=== PATIENT | male | born 1955 | race Caucasian/White ===

== ENCOUNTER 2025-05-23 09:51 | Inpatient (IN) ==
--- NOTE | 2025-05-23 10:55 | Emergency Department Note ---
History of Present Illness General Chief complaint: Hip Pain Stated complaint: HIP PAIN, Time Seen by Provider: 05/23/25 10:27 History of Present Illness Maximum Pain Intensity: 6 This is a 69-year-old male that presents to the emergency department via EMS for evaluation of left lower extremity pain. Patient with recent trauma on May 13 when he fell from a height sustaining injury to his left tibia. Patient states that he was seen at [facility] (as an outpatient - not ED) and had x-rays performed of the left knee area and ultimately CT scan of the left knee which showed tibial plateau fracture. He tried following locally but was referred to ortho surgeon at [facility] and [place] [facility]. Patient underwent left tibial plateau fracture repair this past May 19. The patient notes that he was doing well postoperatively and has been managing pain with Vicodin as well as acetaminophen (denies exceeding daily max of acetaminophen). Patient is anticoagulated on oral Eliquis which was resumed as of recent. The patient does note that during the fall he struck his head and has other areas of pain. He denies any imaging of those areas, only the left leg thus far. He presents today noting severe, worsening left lower extremity pain with associated coolness and purple/blue hue to the toes and foot on the left. He notes much of the pain is the left hip and to a lesser extent the left knee area. He notes mainly the area of pain is the left hip. On arrival here he notes that the left leg pain has greatly improved and the color and temperature have improved in the left leg as well. Patient states that he called his orthopedic surgeon group today and was recommended to present to the closest emergency department to be evaluated for possible compartment syndrome therefore presenting here via EMS. Home Medications Medication Instructions Recorded Confirmed Type Z5-R-ibizy-soy 1 cap PO DAILY 10/14/22 05/23/25 History mrzns-asvymzavxc-poxcbfcp 1,200 unit-15 unit-35 mcg cap (Prostate 2.4) aspirin 81 mg tablet,delayed 81 mg PO Q OTHER DAY 10/14/22 05/23/25 History release fioqhjpd-jwt-ajayd1 250 mg-dha 90 1 cap PO 3XWK 10/14/22 05/23/25 History mg-epa 160 by-fqzj-wcqg-zeax capsule (Ocuvite Adult 50 Plus) pantoprazole 20 mg tablet,delayed 20 mg PO DAILY 10/14/22 05/23/25 History release sulfasalazine 500 mg tablet 1,000 g PO DAILY 10/14/22 05/23/25 History apixaban 5 mg tablet (Eliquis) 5 mg PO BID 05/12/23 05/23/25 History Pro Chappells Coq10 1 tab PO BID 05/23/25 05/23/25 History Visobiome 1 dose PO DAILY 05/23/25 05/23/25 History amlodipine 2.5 mg tablet 2.5 mg PO QAM 05/23/25 05/23/25 History ascorbic acid (vitamin C) 500 mg 1,000 mg PO DAILY 05/23/25 05/23/25 History chewable tablet calcium 600 mg (as carbonate)-vit 1 tab PO 4XWK 05/23/25 05/23/25 History D3 20 mcg (800 unit) chewable tablet (Caltrate plus D) cholecalciferol (vitamin D3) 25 25 mcg PO DAILY 05/23/25 05/23/25 History mcg (1,000 unit) tablet (Vitamin D3) cyclobenzaprine 5 mg tablet 5 mg PO HS PRN Muscle Spasm 05/23/25 05/23/25 History hydrocodone 5 mg-acetaminophen 325 1 tab PO Q6H PRN moderate pain. 05/23/25 05/23/25 History mg tablet metoprolol succinate 25 mg 12.5 mg PO DAILY 05/23/25 05/23/25 History tablet,extended release 24 hr eknefhws-du-uhhdj 300 mcg-K 60 1 tab PO 4XWK 05/23/25 05/23/25 History mcg-lycop 600 mcg-lutein 300 mcg tablet (Centrum Silver Ultra Men's) nitroglycerin 0.4 mg sublingual 0.4 mg sublingual UD PRN Chest Pain 05/23/25 05/23/25 History tablet (Nitrostat) potassium 99 mg tablet 99 mg PO DAILY 05/23/25 05/23/25 History rosuvastatin 20 mg tablet 20 mg PO DAILY 05/23/25 05/23/25 History thiamine HCl (vitamin B1) 50 mg 50 mg PO DAILY 05/23/25 05/23/25 History tablet (Vitamin B-1) vibegron 75 mg tablet (Gemtesa) 75 mg PO QAM 05/23/25 05/23/25 History zinc glycinate 30 mg capsule 30 mg PO DAILY 05/23/25 05/23/25 History Allergies Allergy/AdvReac Type Severity Reaction Status Date / Time atorvastatin [From Lipitor] Allergy Verified 10/14/24 15:33 Past Med/Surg History Problem List (Updated 05/23/25 @ 23:26 by Obed Jose PA-C) Anticoagulated on Eliquis (Acute) Ligament tear (Acute) Muscle strain of left gluteal region (Acute) Contusion of left lower extremity (Acute) Hip pain, left (Acute) History of orthopedic surgery (Acute) Tibial plateau fracture, left (Acute) Groin pain Sleep apnea BPH with obstruction/lower urinary tract symptoms Asthma Inguinal hernia Testicular discomfort Bronchitis Arthritis Gout Elevated PSA Surgical History (Updated 05/23/25 @ 18:40 by Obed Jose PA-C) No pertinent past surgical history Family History (Updated 03/23/21 @ 14:01 by Tho Rabago) Father Cancer Mother Heart disease Social History Smoking Status: Never smoker Hx Alcohol Use: Yes Preferred Language: Bruneian marital status: Single current occupational status: employed Feels Safe at Home: Yes Review of Systems A total of 10 systems reviewed and were otherwise negative Physical Exam Vital Signs Vital Signs - 24 hr 05/23/25 09:57 05/23/25 11:28 05/23/25 11:51 Temperature 36.7 C Temperature Source Temporal Artery Scan Pulse Rate 109 H 96 H Pulse Rate [Apical] 93 H Respiratory Rate 18 17 19 Respiratory Effort / Characteristics Non-Labored Spontaneous Non-Labored Spontaneous Respiratory Depth Normal Normal Respiratory Pattern Blood Pressure 139/84 Blood Pressure [Right Arm] 137/112 H Blood Pressure Mean 102 Blood Pressure Mean [Right Arm] 120 Blood Pressure Position [Right Arm] Pulse Oximetry 98 94 98 Oxygen Delivery Method Room Air Room Air Room Air Sepsis Recent Fever Within 48 Hours No Sepsis New/Unexplained Change in Mental Status No Sepsis Action Taken by Nursing No Action Required 05/23/25 12:34 05/23/25 13:00 05/23/25 17:45 Temperature Temperature Source Pulse Rate 92 H Pulse Rate [Apical] 94 H 103 H Respiratory Rate 17 18 Respiratory Effort / Characteristics Non-Labored Spontaneous Non-Labored Spontaneous Respiratory Depth Normal Normal Respiratory Pattern Blood Pressure Blood Pressure [Right Arm] 140/96 134/88 Blood Pressure Mean Blood Pressure Mean [Right Arm] 110 103 Blood Pressure Position [Right Arm] Semi-fowlers Pulse Oximetry 97 96 Oxygen Delivery Method Room Air Room Air Sepsis Recent Fever Within 48 Hours Sepsis New/Unexplained Change in Mental Status Sepsis Action Taken by Nursing 05/23/25 19:20 05/23/25 20:16 05/23/25 20:56 Temperature 37.1 C Temperature Source Oral Pulse Rate Pulse Rate [Apical] 103 H 99 H 104 H Respiratory Rate 18 16 16 Respiratory Effort / Characteristics Non-Labored Spontaneous Non-Labored Spontaneous Non-Labored Spontaneous Respiratory Depth Normal Normal Normal Respiratory Pattern Regular Regular Regular Blood Pressure Blood Pressure [Right Arm] 112/81 131/82 Blood Pressure Mean Blood Pressure Mean [Right Arm] 91 98 Blood Pressure Position [Right Arm] Semi-fowlers Lying Pulse Oximetry 96 96 94 Oxygen Delivery Method Room Air Room Air Room Air Sepsis Recent Fever Within 48 Hours Sepsis New/Unexplained Change in Mental Status Sepsis Action Taken by Nursing VITAL SIGNS - Vital signs and nursing notes were reviewed. Stable and afebrile. Primary Survey Airway: Intact Breathing: Breath sounds equal bilaterally. No respiratory distress Circulation: Skin warm, capillary refill less than 2 seconds Disability: Pupils equal and reactive to light Motor Function: Moves all extremities. Sensory: No deficits Secondary Survey GENERAL - 69-year-old male appearing his stated age who is in no acute distress. Communicates well with provider and answers questions appropriately. SKIN - Without rashes. HEAD - Normocephalic, Atraumatic. No Lowry's Sign or Raccoon's Eyes. No depressed skull fractures palpable. EYES - PERRL with EOMI bilaterally. Without subconjunctival hemorrhage. Palpebral conjunctiva pink and moist with no injection. EARS - No deformities of external structures noted on gross examination bilaterally. No hemotympanum present. No tympanic perforation noted. Handle of malleus, umbo, cone of light, pars tensa/flaccid all easily visualized. NOSE - Midline and without cyanosis. No epistaxis or clear watery discharge noted. Septum midline without deviation. No septal hematoma noted. No overlying ecchymosis noted. MOUTH/OROPHARYNX - Without perioral cyanosis. Tongue midline with equal elevation of palate bilaterally. No blood noted in the oropharynx. No tonsillar hypertrophy, erythema, or exudates noted. No dental fractures noted. NECK - No tenderness to palpation over the cervical spinous processes. LUNGS - CTA CARDIAC - RRR ABDOMEN - Abdominal contour normal and without pulsations or visible masses. BS normoactive all four quadrants. No rebound tenderness or guarding noted. Negative Erie's or Dacosta Alvares's Signs. No tenderness, palpable masses, hepatosplenomegaly, or ascites noted. EXTREMITIES - No gross deformities noted of the extremities. Left lower extremity appropriately warm and well perfused. Left dorsalis pedis pulse and cap refill within normal limits. There is an Bartolome wrap with large bandage overlying the much of the left lower extremity. Minimal left lateral hip tenderness. +5/5 strength noted in UE/LE bilaterally. Intact passive and active plantarflexion/dorsiflexion of the left foot/ankle. Left calf is soft and nontender. Gentle lifting of the left lower extremity bandage and inspection of the underlying integument does not show any erythema. I will note that I did not disturb the sterile dressings. NEUROLOGIC - Cranial nerves II through XII grossly intact. PSYCH -alert, oriented and pleasant on exam Course Administered Medications Lactated Ringer's (Lr) 1,000 mls @ 80 mls/hr IV .[id number] STA Stop: 05/24/25 09:39 Last Admin: 05/23/25 21:22 Dose: 80 mls/hr Documented By: YUE Morphine Sulfate (Morphine Sulfate 4 Mg/Ml 1 Ml Carp\Vial) 4 mg IV Q3H PRN PRN Reason: Severe Pain (Scale 7, 8, 9,10) Stop: 06/06/25 20:59 Last Admin: 05/23/25 22:18 Dose: 4 mg Documented By: YUE Oxycodone HCl (Oxycodone Hcl Ir 5 Mg Tab (Immediate Release)) 2.5 mg PO Q4H PRN PRN Reason: Moderate Pain (Scale 4, 5, 6) Stop: 06/06/25 20:59 Last Admin: 05/23/25 21:17 Dose: 2.5 mg Documented By: YUE Discontinued Medications Sodium Chloride (Nss) 500 mls @ 80 mls/hr IV .Q6H15M ONE Stop: 05/24/25 01:10 Last Infusion: 05/23/25 21:23 Dose: 0 mls/hr Documented By: Admin: 05/23/25 19:18 Dose: 80 mls/hr Documented By: YUE Ioversol (Optiray 320 125ml) 120 ml IV ONCE ONE Stop: 05/23/25 12:06 Last Admin: 05/23/25 12:05 Dose: 120 ml Documented By: ANDRADE Lidocaine (Lidocaine 5% 1 Patch) 1 patch TD NOW STA Stop: 05/23/25 21:03 Last Admin: 05/23/25 21:19 Dose: 1 patch Documented By: YUE Morphine Sulfate (Morphine Sulfate 4 Mg/Ml 1 Ml Carp\Vial) 4 mg IV NOW STA Stop: 05/23/25 13:23 Last Admin: 05/23/25 13:30 Dose: 4 mg Documented By: KATIE Morphine Sulfate (Morphine Sulfate 4 Mg/Ml 1 Ml Carp\Vial) 4 mg IV NOW STA Stop: 05/23/25 17:40 Last Admin: 05/23/25 17:45 Dose: 4 mg Documented By: SHAYY Ondansetron HCl (Ondansetron Inj 2 Mg/Ml 2 Ml Vial) 4 mg IV NOW STA Stop: 05/23/25 13:23 Last Admin: 05/23/25 13:30 Dose: 4 mg Documented By: KATIE Polyethylene Glycol (Polyethylene (Miralax) 17 Gm Pack) 17 gm PO NOW STA Stop: 05/23/25 21:01 Last Admin: 05/23/25 21:17 Dose: 17 gm Documented By: YUE Medical Decision Making Laboratory Data 05/23/25 11:17 05/23/25 11:17 Lab Results 05/23/25 05/23/25 Range/Units 11:17 11:23 WBC 6.85 (4.8-10.8) K/ul RBC 4.32 L (4.70-6.10) M/uL Hgb 14.0 (14.0-18.0) g/dL POC Hgb 13.9 L (14.0-18.0) g/dl Hct 39.8 L (42.0-52.0) % POC Hct 41 L (42-52) % MCV 92.1 (80.0-100.0) fL MCH 32.4 (25.0-34.0) pg MCHC 35.2 (32.0-36.0) g/dL RDW Std Deviation 41.7 (36.4-46.3) fL RDW Coeff of Lorrie 12.4 (11.5-14.5) % Plt Count 364 (130-400) K/uL MPV 8.3 L (9.4-12.4) fL Immature Gran % (Auto) 1.2 % Neut % (Auto) 64.7 % Lymph % (Auto) 19.9 % Arroyo % (Auto) 12.3 % Eos % (Auto) 1.2 % Baso % (Auto) 0.7 % Neut # (Auto) 4.44 (1.40-6.50) K/uL Lymph # (Auto) 1.36 (1.20-3.40) K/uL Arroyo # (Auto) 0.84 H (0.11-0.59) K/uL Eos # (Auto) 0.08 (0.00-0.50) K/uL Baso # (Auto) 0.05 (0.00-0.20) K/uL Immature Gran # (Auto) 0.08 (0.01-0.20) K/uL PT 11.3 (9.0-12.0) Seconds INR 1.1 (0.9-1.1) APTT 30 (21-31) Seconds PTT Ratio 1.1 POC Sodium 136 (135-144) mmol/L Sodium 136 (136-145) mmol/L POC Potassium 4.5 (3.3-5.0) mmol/L Potassium 4.4 (3.5-5.1) mmol/L POC Chloride 99 L (101-112) mmol/L Chloride 100 (98-107) mmol/L Carbon Dioxide 29 (21-32) mmol/L POC Total CO2 27 (24-31) mmol/L Anion Gap 7 (3-11) POC Anion Gap 15.0 L (16-25) mmol/L POC BUN 19 H (7-18) mg/dl BUN 17 (6-23) mg/dl Creatinine 0.70 (0.6-1.4) mg/dl POC Creatinine 0.9 (0.6-1.3) mg/dl Est Cr Clr Drug Dosing Not Reportable eGFR 100.37 BUN/Creatinine Ratio 24.3 H (10-20) Glucose 98 (70-99(Fasting)) mg/dl POC Glucose (other) 97 (70-99) mg/dl Lactate 0.9 (0.4-2.0) mmol/L Calcium 9.8 (8.6-10.3) mg/dl POC Ioniz Calcium Rc 1.21 (1.12-1.32) mmol/l Total Bilirubin 0.7 (0.2-1.0) mg/dl AST 16 (13-39) U/L ALT 14 (7-52) U/L Alkaline Phosphatase 47 (34-104) U/L Total Creatine Kinase 79 (30-223) U/L Total Protein 7.7 (6.0-8.3) gm/dl Albumin 4.2 (3.4-5.0) gm/dl Globulin 3.5 (2.5-4.0) gm/dl Albumin/Globulin Ratio 1.2 (0.9-2) Imaging Data Radiologist's Impression: Abdomen/Pelvis CT 05/23/25 10:45 CT SCAN OF THE ABDOMEN AND PELVIS WITH IV CONTRAST CLINICAL HISTORY: Fall. COMPARISON STUDY: Renal ultrasound August 12, 2024. TECHNIQUE: Following the IV administration of 120 cc of Optiray 320, CT scan of the abdomen and pelvis is performed from the lung bases to the proximal femora. Images are reviewed in the axial, sagittal, and coronal planes. IV contrast was administered without complication. A dose lowering technique was utilized adhering to the principles of ALARA. FINDINGS: There is an acute nondisplaced fracture of the anterolateral left 10th rib. There are calcified granulomas within the liver and spleen. No evidence for traumatic injury to the liver, spleen, adrenal glands, kidneys or pancreas. No biliary or pancreatic ductal dilatation. There is extensive sigmoid diverticulosis without evidence for acute diverticulitis. The caliber and wall thickness of small and large bowel are normal. No acute fractures within the lumbar spine, pelvis or hips are identified. There are old right pubic ring fractures of the garcia of old fracture of the left iliac bone. Left thigh stranding is noted. This is better depicted on the left lower extremity CTA which will be reported separately. IMPRESSION: 1. No acute traumatic findings within the abdomen or pelvis. 2. Acute nondisplaced left 10th rib fracture. ACT 112: Negative or not required by law. Electronically signed by: Denis Ayala M.D. 05/23/2025 12:[address] 05/23/25 10:45 CT SCAN OF THE CHEST WITH IV CONTRAST CLINICAL HISTORY: Fall. COMPARISON STUDY: Chest CT April 14, 2015. TECHNIQUE: Following the IV administration of 120 cc of Optiray 320, CT scan of the thorax was performed from the thoracic inlet to the upper abdomen. Images are reviewed in the axial, sagittal, and coronal planes. IV contrast was administered without complication. A dose lowering technique was utilized adhering to the principles of ALARA. CT DOSE: 3111.91 mGy.cm FINDINGS: There is no evidence for traumatic injury to the thoracic aorta. Size of the heart is normal. Is no pericardial effusion. Calcified mediastinal and left hilar lymph nodes are noted as well as calcified granulomas within the lungs. The findings suggest a previous granulomatous process. There is no pneumothorax or pleural effusion. No suspicious pulmonary nodules are present. No acute thoracic spine fractures are present. There is an acute nondisplaced fracture of the anterolateral left 10th rib. Abdomen and pelvis CT will be reported separately. IMPRESSION: 1. No evidence for traumatic injury to the thoracic aorta. 2. Acute nondisplaced anterolateral left 10th rib fracture. No pneumothorax. ACT 112: Negative or not required by law. Electronically signed by: Denis Ayala M.D. 05/23/2025 12:32 PM Lower Extremity CTA 05/23/25 10:45 CT angio LE LT w inc wo if don HISTORY: 69 years-old Male L leg cold, pain, recent surgery COMPARISON: CT lumbar spine same day, radiographs of the left femur 05/13/2025 TECHNIQUE: CTA left lower extremity was obtained with IV contrast. 3-D coronal and sagittal MIPS were obtained and submitted for review. All measurements were obtained according to NASCET criteria. A dose lowering technique was used consistent with the principals of ALARA. FINDINGS: CTA: The imaged external and internal iliac arteries are widely patent. The common femoral, and superficial femoral arteries are widely patent with atherosclerosis. Patent popliteal artery, tibioperoneal trunk, anterior tibial, posterior tibial and peroneal arteries. There is at least mild multifocal stenoses within the lower leg arteries secondary to atherosclerosis with three- vessel flow to the level of the ankle. No arterial occlusion or active extravasation. CT LOWER EXTREMITY: Colonic diverticulosis. Prostatomegaly. Moderate lateral prominent subcutaneous edema. Small to moderate joint effusion containing intra- articular debris/blood products along with intra-articular air foci. Lateral skin una are superficial to a 6 cm air and fluid-filled postoperative fluid collection within the subcutaneous tissues. There is an adjacent subcentimeter ossification/bone fragment on image 439 series 3. There is mild tricompartmental osteoarthritis of the knee. Acute comminuted proximal tibial and fibular fracture deformities are redemonstrated with fracture extending into the lateral tibial plateau. Status post ORIF with plate and screw fusion of the proximal tibial fracture. The hardware appears intact. IMPRESSION: 1. Satisfactory alignment of the acute proximal tibial fracture status post ORIF. 2. Unchanged alignment of the acute proximal fibular fracture. 3. Complex joint effusion/hemarthrosis with lateral subcutaneous postoperative fluid collection deep to the skin una. 4. CTA component of the study is within normal limits. ACT 112: Negative or not required by law. The above report was generated using voice recognition software. It may contain grammatical, syntax or spelling errors. Electronically signed by: Alex Johnson M.D. 05/23/2025 12:[address] 05/23/25 10:45 CT lumbar spine w con HISTORY: 69 years-old Male Fall, L low back pain s/p fall recently acute low- back pain status post fall COMPARISON: CT chest same day TECHNIQUE: Multiple axial CT images of the lumbar spine were obtained with IV contrast. A dose lowering technique was used consistent with the principals of ALARA. FINDINGS: Mild multilevel spondylitic spurring and facet arthrosis. Chondrocalcinosis of the L4-L5 disc space. No acute fracture, subluxation or erosion. Degenerative partial bony fusion of the left SI joint. No high-grade central canal or neural foraminal stenosis identified by CT. No acute intra-abdominal or intrapelvic abnormality identified. Colonic diverticulosis. IMPRESSION: Unremarkable exam without acute fracture or subluxation. ACT 112: Negative or not required by law. The above report was generated using voice recognition software. It may contain grammatical, syntax or spelling errors. Electronically signed by: Alex Johnson M.D. 05/23/2025 12:[address] 05/23/25 10:48 CT cervical spine wo con CT DOSE: 1156.18 mGy.cm CLINICAL HISTORY: fall, injury. COMPARISON: None TECHNIQUE: Multiple axial CT images of the cervical spine were obtained without contrast. A dose lowering technique was utilized adhering to the principles of ALARA. FINDINGS: There are mild diffuse degenerative changes at the cervical spine. No cervical spine fracture or subluxation seen. There are moderate carotid bulb calcifications. IMPRESSION: No cervical spine fracture seen. ACT 112: Negative or not required by law. The above report was generated using voice recognition software. It may contain grammatical, syntax or spelling errors. Electronically signed by: Nish Gloria M.D. 05/23/2025 12:[address] 05/23/25 10:48 CT SCAN OF THE BRAIN WITHOUT IV CONTRAST CLINICAL HISTORY: Fall. COMPARISON STUDY: Sinus CT April 14, 2015. TECHNIQUE: Unenhanced axial CT scan of the brain was performed from the vertex to the skull base. A dose lowering technique was utilized adhering to the principles of ALARA. FINDINGS: Brain parenchyma: No acute intracranial hemorrhage, midline shift or mass effect is present. Guzman-white matter differentiation is preserved. There are no extra- axial fluid collections. There are no findings to suggest acute dural sinus thrombosis or acute territorial infarct. Ventricles, sulci, cisterns: There is no hydrocephalus. Cavum septum pellucidum is incidentally noted. The basal cisterns are patent. Calvarium: There are no calvarial fractures. Sinuses and mastoids: The visualized paranasal sinuses are clear. The mastoid air cells are well pneumatized. Orbits: The bony orbits are grossly intact. IMPRESSION: 1. No acute intracranial findings. 2. No calvarial fractures. ACT 112: Negative or not required by law. Electronically signed by: Denis Ayala M.D. 05/23/2025 12:24 PM Hip MRI 05/23/25 15:31 EXAM: MR hip LT wo con CLINICAL HISTORY: Fall, L hip pain, anticoagulated. TECHNIQUE: Multiplanar, multiecho MRI of the left hip was performed without administration of intravenous contrast. Images were sent through PACs for diagnostic interpretation. COMPARISON: Prior CR study dated 05/13/2025 reviewed. FINDINGS: Bones and Joints: Subcutaneous edema along the lateral aspect of the left thigh is consistent with posttraumatic contusion. Old healed fracture of the right superior pubic ramus with mild cortical irregularity and angulation. Findings of osteitis pubis. Bilateral hip joint effusions noted. Bilateral hip joint space narrowing with subchondral sclerosis, cortical fibrillation, and chondrocalcinosis ? consistent with primary osteoarthritis. No femoral head collapse or fracture. No MRI evidence of femoroacetabular impingement. Capsulolabral Complex and Ligaments: Altered signal at the 12 o'clock position of the left labrum consistent with a partial labral tear. Altered signal in the left iliofemoral ligament consistent with a partial tear. Muscles and Tendons: Increased feathery STIR signal within the left gluteus rodrigo and rectus femoris muscles, consistent with grade I myogenic strain. No tendon rupture or avulsion. Soft Tissues: Bilateral inguinal hernias present. Overlying soft tissues are unremarkable apart from a lateral thigh contusion. Spine and Osseous Structures: Spondylodegenerative changes of the lumbosacral spine with multilevel disc pathology. No sacral or iliac marrow lesion identified. Other Findings: Incidental colonic diverticulosis without features of acute diverticulitis. IMPRESSION: 1. Posttraumatic contusion along the lateral aspect of the left thigh with associated subcutaneous edema. 2. Healed fracture of the right superior pubic ramus with cortical irregularity and angulation. 3. Osteitis pubis. 4. Grade I myogenic strain of the left gluteus rodrigo and rectus femoris muscles.. 5. Bilateral hip joint effusion. 6. 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 7. Partial tear of the capsulo-labral complex at the 12 o'clock position of the left hip. 8. Partial tear of the iliofemoral ligament. 9. Bilateral inguinal hernias. Electronically signed by Alfredo Marshall 05-23-2025 8:20 PM Lumbar Spine MRI 05/23/25 15:31 MRI of the lumbar spine without contrast Technique: Noncontrast multiplanar and multisequence MRI images of the lumbar spine were obtained. No comparison Impression: Vertebral bodies are all normal in height, alignment, and signal intensity. The discs all demonstrate mild loss of signal height and intensity. No significant canal or foraminal stenosis identified on this exam. Impression Unremarkable exam Electronically signed by Patrick Huang 05-23-2025 8:50 PM MDM Narrative Patient was seen and evaluated as above in room D05. Review was performed of triage nursing notes and vital signs. After obtaining a thorough history and physical examination the above work up was performed. Patient presents to us today for evaluation of left lower extremity pain in the setting of recent left leg surgery status post trauma. Although the recent surgery was to the left proximal tibia, much of the patient's discomfort is in the left lateral hip which he notes pain began before the surgery but after the fall on May 13. On my assessment the patient does not have an exam consistent with that of compartment syndrome. The left leg pain is much improved. The left lower extremity is appropriately warm and well-perfused. Options of care were discussed with the patient. IV access was established. Labs were drawn. The patient does have an appropriately warm and well-perfused left lower extremity. There is cast padding with overlying Bartolome wrap in place. The dressing is with good fit. It is not too tight. I cautiously looked under the bandage at the integument and there is some ecchymosis but no erythema. I did not disturb the sterile bandages. There is no leukocytosis or concerning anemia, will note hemoglobin low normal at 14. Coags normal. No evidence of kidney or liver failure. There is elevation of BUN at 19. Total CK within normal range. The patient did undergo CT trauma scans as he is anticoagulated and does note fall about 10-11 days ago with intermittent headache and rib pain. Results as above. He does have a rib fracture on the left. The left lower extremity does show postop findings as well as a 6 centimeter collection. I did discuss this presentation with our on-call orthopedist, Dr. Abdul at 1330 HRS. He did recommend transfer back to where the patient had surgery which was [facility]. The patient expresses great concern about returning to [facility] and expresses frustration as his recent care. He notes that he tried reaching out to his surgical team multiple times throughout this week noting progressively worsening pain and felt his concerns were not being heard. He notes that when he reached back out today requesting to be seen by his surgical team, he was recommended to go to the closest emergency department. Patient notes that he refused to go back to [facility] and requested specifically to come here to be evaluated. At this time we are awaiting callback from [facility]. Frequent repeat assessments of the patient's were performed. 1500 HRS: I spoke with Dr. Stevens, orthopedics at [facility]. He recommended Toradol/ possible increased analgesic dose and does not feel the patient needs to stay in the hospital. My plan at this time is to admit the patient to this facility for further evaluation and management as I do believe the patient would benefit from further assessment. The patient is requiring IV analgesia here to manage his pain. Patient with limited ability to take NSAIDs secondary to his anticoagulated state, and the Tylenol and Cordova prescription at home have been of minimal help with the severe pain he has been experiencing today. I do not believe that discharge home at this time would be appropriate. The patient has not been accepted to [facility] and patient notes he refuses to go back to that facility anyway. I did order MRIs of the left hip and L-spine to further assess for thoroughness. I then spoke with Dr. Young, hospitalist. I then spoke again with Dr. Abdul to update that the surgeon at [facility] recommended discharge home and updated him on my plan to bring the patient into this facility as the patient appears to have other areas of pain noting the left hip area separate from the surgical site. I then spoke again with hospitalist, Dr. Young to update on discussions. He did recommend that I speak with spine here at this facility prior to him admitting the patient. I did receive a phone call again from [facility], Dr. Stevens to follow-up on the patient. He then noted that he could accept the patient to [facility] however I did inform him that the patient was quite upset with recommendations earlier and with [facility] and is refusing to go to [facility]. Dr. Stevens does provide his personal contact information of [phone]. [id number] spoke with Dr. Vasquez, orthopedics. He is on-call, is available and happy to help. I will note that the patient upon multiple repeat assessments here maintains neurovascular status. He has no back pain. He continues with a benign abdomen. He is saturating well on room air. He was medicated with IV morphine x 2 as well as IV Zofran during his time here in the ED. The patient has spent nearly 10 hours in the emergency department and I have spent extensive time at bedside with frequent reassessments of the patient's status and left lower extremity neurovascular status. Serial left lower extremity examinations reveal a warm, well-perfused left lower extremity without neurovascular deficit. I also followed up with the patient regarding the MRI findings which are as above. L-spine without emergent process. The left hip does have findings which may attribute to his pain. The patient's continued examinations do not reveal any evidence of compartment syndrome. GCS: 15 In the evaluation and treatment of this patient the following differential diagnoses were entertained: Intracranial hemorrhage, skull fracture, rib fracture, pneumothorax, intra-abdominal hemorrhage, compartment syndrome, left hip fracture, L-spine fracture, among others. Impression & Plan Hip pain, left, Tibial plateau fracture, left, History of orthopedic surgery, Contusion of left lower extremity, Muscle strain of left gluteal region, Ligament tear, Anticoagulated on Eliquis Discharge Plan Visit Data Chief Complaint: Hip Pain Stated Complaint: HIP PAIN, ED Provider: Gustavo Sharma ED Midlevel Provider: Obed Jose Discharge Problem: Hip pain, left, Tibial plateau fracture, left, History of orthopedic surgery, Contusion of left lower extremity, Muscle strain of left gluteal region, Ligament tear, Anticoagulated on Eliquis Patient Disposition: Admitted As Inpatient Condition: Good Discharge Instructions Interventions: ED Discharge Assessment Last Done: 05/23/25 23:09
[2025-05-23 11:40] LABS: Hematocrit (blood only) 39.8 % (42.0-52.0); Hemoglobin 14.0 g/dL (14.0-18.0); Immature Granulocytes # (auto) 0.08 K/uL (0.01-0.20); Immature Granulocytes % (auto) 1.2 %; Mean Corpuscular Hemoglobin 32.4 pg (25.0-34.0); Mean Corpuscular Volume 92.1 fL (80.0-100.0); Platelet Count 364 K/uL (130-400); RDW Standard Deviation 41.7 fL (36.4-46.3); Red Blood Count 4.32 M/uL (4.70-6.10); White Blood Count 6.85 K/ul (4.8-10.8)
[2025-05-23 11:55] LABS: Alanine Aminotransferase 14 U/L (7-52); Albumin Globulin Ratio 1.2 (0.9-2); Albumin Level 4.2 gm/dl (3.4-5.0); Alkaline Phosphatase 47 U/L (34-104); Anion Gap 7 (3-11); Bilirubin,Total 0.7 mg/dl (0.2-1.0); Blood Urea Nitrogen 17 mg/dl (6-23); Calcium 9.8 mg/dl (8.6-10.3); Carbon Dioxide 29 mmol/L (21-32); Chloride 100 mmol/L (98-107); Creatine Kinase 79 U/L (30-223); Globulin 3.5 gm/dl (2.5-4.0); Glucose 98 mg/dl (70-99(Fasting)); Potassium 4.4 mmol/L (3.5-5.1); Sodium 136 mmol/L (136-145); Total Protein 7.7 gm/dl (6.0-8.3)
[2025-05-23] MEDS: OPTIRAY 320 125ml IV ONE (12:05)
[2025-05-23 12:07] LABS: INR 1.1 (0.9-1.1); Partial Thromboplastin Time 30 Seconds (21-31); Prothrombin Time 11.3 Seconds (9.0-12.0)
--- NOTE | 2025-05-23 12:22 | CT Scan Report ---
CT cervical spine wo con CT DOSE: 1156.18 mGy.cm CLINICAL HISTORY: fall, injury. COMPARISON: None TECHNIQUE: Multiple axial CT images of the cervical spine were obtained without contrast. A dose low ering technique was utilized adhering to the principles of ALARA. FINDINGS: There are mild diffuse degenerative changes at the cervical spine. No cervical spine fractu re or subluxation seen. There are moderate carotid bulb calcifications. IMPRESSION: No cervical spine fracture seen. ACT 112: Negative or not required by law. The above report was generated using voice recognition software. It may contain grammatical, syntax o r spelling errors. Electronically signed by: Nish Gloria M.D. 05/23/2025 12:21 PM
--- NOTE | 2025-05-23 12:26 | CT Scan Report ---
CT SCAN OF THE BRAIN WITHOUT IV CONTRAST CLINICAL HISTORY: Fall. COMPARISON STUDY: Sinus CT April 14, 2015. TECHNIQUE: Unenhanced axial CT scan of the brain was performed from the vertex to the skull base. A dose lowering technique was utilized adhering to the principles of ALARA. FINDINGS: Brain parenchyma: No acute intracranial hemorrhage, midline shift or mass effect is present. Guzman-whi te matter differentiation is preserved. There are no extra-axial fluid collections. There are no find ings to suggest acute dural sinus thrombosis or acute territorial infarct. Ventricles, sulci, cisterns: There is no hydrocephalus. Cavum septum pellucidum is incidentally noted . The basal cisterns are patent. Calvarium: There are no calvarial fractures. Sinuses and mastoids: The visualized paranasal sinuses are clear. The mastoid air cells are well pneu matized. Orbits: The bony orbits are grossly intact. IMPRESSION: 1. No acute intracranial findings. 2. No calvarial fractures. ACT 112: Negative or not required by law. Electronically signed by: Denis Ayala M.D. 05/23/2025 12:24 PM
--- NOTE | 2025-05-23 12:33 | CT Scan Report ---
CT SCAN OF THE CHEST WITH IV CONTRAST CLINICAL HISTORY: Fall. COMPARISON STUDY: Chest CT April 14, 2015. TECHNIQUE: Following the IV administration of 120 cc of Optiray 320, CT scan of the thorax was perfor med from the thoracic inlet to the upper abdomen. Images are reviewed in the axial, sagittal, and cor onal planes. IV contrast was administered without complication. A dose lowering technique was utiliz ed adhering to the principles of ALARA. CT DOSE: 3111.91 mGy.cm FINDINGS: There is no evidence for traumatic injury to the thoracic aorta. Size of the heart is sherron l. Is no pericardial effusion. Calcified mediastinal and left hilar lymph nodes are noted as well as calcified granulomas within the lungs. The findings suggest a previous granulomatous process. There i s no pneumothorax or pleural effusion. No suspicious pulmonary nodules are present. No acute thoracic spine fractures are present. There is an acute nondisplaced fracture of the anterolateral left 10th rib. Abdomen and pelvis CT will be reported separately. IMPRESSION: 1. No evidence for traumatic injury to the thoracic aorta. 2. Acute nondisplaced anterolateral left 10th rib fracture. No pneumothorax. ACT 112: Negative or not required by law. Electronically signed by: Denis Ayala M.D. 05/23/2025 12:32 PM
--- NOTE | 2025-05-23 12:37 | CT Scan Report ---
CT SCAN OF THE ABDOMEN AND PELVIS WITH IV CONTRAST CLINICAL HISTORY: Fall. COMPARISON STUDY: Renal ultrasound August 12, 2024. TECHNIQUE: Following the IV administration of 120 cc of Optiray 320, CT scan of the abdomen and pelvi s is performed from the lung bases to the proximal femora. Images are reviewed in the axial, sagittal , and coronal planes. IV contrast was administered without complication. A dose lowering technique wa s utilized adhering to the principles of ALARA. FINDINGS: There is an acute nondisplaced fracture of the anterolateral left 10th rib. There are calci fied granulomas within the liver and spleen. No evidence for traumatic injury to the liver, spleen, a drenal glands, kidneys or pancreas. No biliary or pancreatic ductal dilatation. There is extensive si gmoid diverticulosis without evidence for acute diverticulitis. The caliber and wall thickness of sma ll and large bowel are normal. No acute fractures within the lumbar spine, pelvis or hips are identif ied. There are old right pubic ring fractures of the garcia of old fracture of the left iliac bone. Le ft thigh stranding is noted. This is better depicted on the left lower extremity CTA which will be re ported separately. IMPRESSION: 1. No acute traumatic findings within the abdomen or pelvis. 2. Acute nondisplaced left 10th rib fracture. ACT 112: Negative or not required by law. Electronically signed by: Denis Ayala M.D. 05/23/2025 12:36 PM
--- NOTE | 2025-05-23 12:49 | CT Scan Report ---
CT angio LE LT w inc wo if don HISTORY: 69 years-old Male L leg cold, pain, recent surgery COMPARISON: CT lumbar spine same day, radiographs of the left femur 05/13/2025 TECHNIQUE: CTA left lower extremity was obtained with IV contrast. 3-D coronal and sagittal MIPS were obtained and submitted for review. All measurements were obtained according to NASCET criteria. A do se lowering technique was used consistent with the principals of MARYLIN. FINDINGS: CTA: The imaged external and internal iliac arteries are widely patent. The common femoral, and super ficial femoral arteries are widely patent with atherosclerosis. Patent popliteal artery, tibioperonea l trunk, anterior tibial, posterior tibial and peroneal arteries. There is at least mild multifocal s tenoses within the lower leg arteries secondary to atherosclerosis with three-vessel flow to the leve l of the ankle. No arterial occlusion or active extravasation. CT LOWER EXTREMITY: Colonic diverticulosis. Prostatomegaly. Moderate lateral prominent subcutaneous e merna. Small to moderate joint effusion containing intra-articular debris/blood products along with in tra-articular air foci. Lateral skin una are superficial to a 6 cm air and fluid-filled postopera tive fluid collection within the subcutaneous tissues. There is an adjacent subcentimeter ossificatio n/bone fragment on image 439 series 3. There is mild tricompartmental osteoarthritis of the knee. Acu te comminuted proximal tibial and fibular fracture deformities are redemonstrated with fracture exten ding into the lateral tibial plateau. Status post ORIF with plate and screw fusion of the proximal ti bial fracture. The hardware appears intact. IMPRESSION: 1. Satisfactory alignment of the acute proximal tibial fracture status post ORIF. 2. Unchanged alignment of the acute proximal fibular fracture. 3. Complex joint effusion/hemarthrosis with lateral subcutaneous postoperative fluid collection deep to the skin una. 4. CTA component of the study is within normal limits. ACT 112: Negative or not required by law. The above report was generated using voice recognition software. It may contain grammatical, syntax o r spelling errors. Electronically signed by: Alex Johnson M.D. 05/23/2025 12:48 PM
--- NOTE | 2025-05-23 12:57 | CT Scan Report ---
CT lumbar spine w con HISTORY: 69 years-old Male Fall, L low back pain s/p fall recently acute low-back pain status post f all COMPARISON: CT chest same day TECHNIQUE: Multiple axial CT images of the lumbar spine were obtained with IV contrast. A dose loweri ng technique was used consistent with the principals of MARYLIN. FINDINGS: Mild multilevel spondylitic spurring and facet arthrosis. Chondrocalcinosis of the L4-L5 disc space. No acute fracture, subluxation or erosion. Degenerative partial bony fusion of the left SI joint. No high-grade central canal or neural foraminal stenosis identified by CT. No acute intra-abdominal or i ntrapelvic abnormality identified. Colonic diverticulosis. IMPRESSION: Unremarkable exam without acute fracture or subluxation. ACT 112: Negative or not required by law. The above report was generated using voice recognition software. It may contain grammatical, syntax o r spelling errors. Electronically signed by: Alex Johnson M.D. 05/23/2025 12:56 PM
[2025-05-23] MEDS: MoRPHine SULFATE 4 MG/ML 1 ML CARP\\VIAL IV STA ×2 (13:30→17:45)
[2025-05-23] MEDS: ONDANSETRON INJ 2 MG/ML 2 ML VIAL IV STA (13:30)
[2025-05-23] MEDS: SODIUM CHLORIDE 0.9% 500 ML IV ONE (19:18)
--- NOTE | 2025-05-23 20:20 | Magnetic Resonance Report ---
EXAM: MR hip LT wo con CLINICAL HISTORY: Fall, L hip pain, anticoagulated. TECHNIQUE: Multiplanar, multiecho MRI of the left hip was performed without administration of intravenous contrast. Images were sent through PACs for diagnostic interpretation. COMPARISON: Prior CR study dated 05/13/2025 reviewed. FINDINGS: Bones and Joints: Subcutaneous edema along the lateral aspect of the left thigh is consistent with posttraumatic contusion. Old healed fracture of the right superior pubic ramus with mild cortical irregularity and angulation. Findings of osteitis pubis. Bilateral hip joint effusions noted. Bilateral hip joint space narrowing with subchondral sclerosis, cortical fibrillation, and chondrocalcinosis ? consistent with primary osteoarthritis. No femoral head collapse or fracture. No MRI evidence of femoroacetabular impingement. Capsulolabral Complex and Ligaments: Altered signal at the 12 o'clock position of the left labrum consistent with a partial labral tear. Altered signal in the left iliofemoral ligament consistent with a partial tear. Muscles and Tendons: Increased feathery STIR signal within the left gluteus rodrigo and rectus femoris muscles, consistent with grade I myogenic strain. No tendon rupture or avulsion. Soft Tissues: Bilateral inguinal hernias present. Overlying soft tissues are unremarkable apart from a lateral thigh contusion. Spine and Osseous Structures: Spondylodegenerative changes of the lumbosacral spine with multilevel disc pathology. No sacral or iliac marrow lesion identified. Other Findings: Incidental colonic diverticulosis without features of acute diverticulitis. IMPRESSION: 1. Posttraumatic contusion along the lateral aspect of the left thigh with associated subcutaneous edema. 2. Healed fracture of the right superior pubic ramus with cortical irregularity and angulation. 3. Osteitis pubis. 4. Grade I myogenic strain of the left gluteus rodrigo and rectus femoris muscles.. 5. Bilateral hip joint effusion. 6. 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 7. Partial tear of the capsulo-labral complex at the 12 o'clock position of the left hip. 8. Partial tear of the iliofemoral ligament. 9. Bilateral inguinal hernias. Electronically signed by Alfredo Marshall 05-23-2025 8:20 PM
--- NOTE | 2025-05-23 20:50 | Magnetic Resonance Report ---
MRI of the lumbar spine without contrast Technique: Noncontrast multiplanar and multisequence MRI images of the lumbar spine were obtained. No comparison Impression: Vertebral bodies are all normal in height, alignment, and signal intensity. The discs all demonstrate mild loss of signal height and intensity. No significant canal or foraminal stenosis identified on this exam. Impression Unremarkable exam Electronically signed by Patrick Huang 05-23-2025 8:50 PM
--- NOTE | 2025-05-23 21:08 | History & Physical Report ---
Date of Service May 23, 2025 Assessment & Plan (1) Tibial plateau fracture, left: (2) Ligament tear: (3) Muscle strain of left gluteal region: (4) Anticoagulated on Eliquis: Plan The patient is a 69-year-old male with a past medical history including paroxysmal atrial fibrillation, paroxysmal atrial flutter, inguinal hernia, vitamin D deficiency, carotid artery occlusion, mild persistent asthma, chronic anticoagulation on Eliquis, CESAR, BPH with LUTS, gout, diverticulosis, and history of colitis. The patient had a recent trauma on May 13, when he fell, he was seen at [facility] as an outpatient, and had x-rays performed of the left knee, and then subsequently a CT scan of the left knee which showed a tibial plateau fracture. He underwent orthopedic surgery by Dr. Ramires at [facility] on May 19. The patient reports that he also at the time of the fall had developed some left sacroiliac and left hip area pain, which has become more prevalent over the past few days. He and his daughter report that the Vicodin that he has been taking for the pain is not working adequately. He called the orthopedic surgical group [facility], and was advised to report to the nearest hospital emergency department. He presented to [facility] emergency department due to concerns regarding worsening left lower extremity pain, and also noted today a purple/blue hue to his toes and foot on the left side. He also notes sign ificant issues with constipation since he has been on the pain medications, not having moved his bowels for 3 days. He underwent multiple imaging studies at [facility] this evening, and was then referred for evaluation for admission to the [facility]. Status post fall/left tibial plateau fracture/multiple ligament tears and left gluteal strain- Patient underwent left tibial plateau fracture repair by Dr. Ramires at [facility] on 05/19. His left leg is to remain wrapped he reports for 2 weeks. There was some purple/blue coloration changes noted in his foot this morning, which prompted his visit to the emergency department this evening. Normal circulation noted on imaging studies performed. In the ED, there is no abnormal coloring, and palpable pulses are noted. Due to the patient being on anticoagulation with Eliquis, which had been stopped 3 days prior to surgery, and was resumed today after surgery, the patient underwent multiple imaging studies in the ED this evening. CT scan of chest/abdomen/pelvis noted an acute nondisplaced left 10th rib fracture. CT angiography left lower extremity shows satisfactory alignment of the acute proximal tibial plateau fracture status post ORIF. Unchanged alignment of the acute proximal fibular fracture. Complex joint effusion/hemarthrosis with lateral subcutaneous postoperative fluid collection deep to the skin una. CTA component study was within normal limits. CT scan of lumbar spine was unremarkable for acute findings, but did note chondrocalcinosis of the L4-L5 disc space, and degeneration/partial bony fusion of the left SI joint. CT scan of cervical spine with no acute fractures. CT scan of head showed no calvarial fractures and no acute intracranial findings. MRI of hip was significant for a partial tear of the L-labral complex at the 12 o'clock position of the left hip. Partial tear of the iliofemoral ligament. Bilateral hip joint effusion. Bilateral degenerative hip joint disease due to primary osteoarthritis. Grade 1 myogenic strain at the left gluteus rodrigo and rectus femoris muscles. Healed fracture of the right superior pubic ramus. Posttraumatic contusion on the lateral aspect of the left thigh with associated subcutaneous edema. The findings of the MRI explained to the patient's primary complaint which is that of left sacroiliac and left hip pain. Conservative therapy, PT/OT, should be of benefit Lidoderm patch to be applied topically Patient is not able to use NSAIDs due to chronic use of Eliquis and aspirin. Tylenol 650 mg by mouth every 6 hours as needed for mild pain or fever Oxycodone 2.5 mg by mouth every 4 hours as needed for moderate pain Morphine sulfate 4 mg IV every 3 hours as needed for severe pain Continue cyclobenzaprine 5 mg at bedtime as needed Lidoderm patch/ointment to be applied over left sacroiliac joint and left hip Orthopedic follow-up. Paroxysmal atrial fibrillation/paroxysmal atrial flutter/hypertension- Continue apixaban, amlodipine, aspirin, metoprolol succinate Significant constipation- LR at 80 mL/h x 1 L MiraLAX powder 17 g p.o. now, and every morning Senokot 17.2 mg p.o. every morning Left 10th rib fracture- Patient without symptoms Hyperlipidemia- Continue rosuvastatin Ulcerative colitis- Continue sulfasalazine GERD- Continue pantoprazole BPH with LUTS/bladder spasm- Continue vibegron OTC supplements- Patient will resume upon discharge History of Present Illness Primary Care Provider: Maggie Hunter PA-C The patient is a 69-year-old male with a past medical history including paroxysmal atrial fibrillation, paroxysmal atrial flutter, inguinal hernia, vitamin D deficiency, carotid artery occlusion, mild persistent asthma, chronic anticoagulation on Eliquis, CESAR, BPH with LUTS, gout, diverticulosis, and history of colitis. The patient had a recent trauma on May 13, when he fell, he was seen at [facility] as an outpatient, and had x-rays performed of the left knee, and then subsequently a CT scan of the left knee which showed a tibial plateau fracture. He underwent orthopedic surgery by Dr. Ramires at [facility] on May 19. The patient reports that he also at the time of the fall had developed some left sacroiliac and left hip area pain, which has become more prevalent over the past few days. He and his daughter report that the Vicodin that he has been taking for the pain is not working adequately. He called the orthopedic surgical group [facility], and was advised to report to the nearest hospital emergency department. He presented to [facility] emergency department due to concerns regarding worsening left lower extremity pain, and also noted today a purple/blue hue to his toes and foot on the left side.. He underwent multiple imaging studies at [facility] this evening, and was then referred for evaluation for admission to the [facility]. Allergies Allergy/AdvReac Type Severity Reaction Status Date / Time atorvastatin [From Lipitor] Allergy Verified 10/14/24 15:33 Home Medications Medication Instructions Recorded Confirmed Type R3-A-lfbdh-soy 1 cap PO DAILY 10/14/22 05/23/25 History pywdl-yxermnbntj-bryurfgk 1,200 unit-15 unit-35 mcg cap (Prostate 2.4) aspirin 81 mg tablet,delayed 81 mg PO Q OTHER DAY 10/14/22 05/23/25 History release unwrtubb-hil-esluk1 250 mg-dha 90 1 cap PO 3XWK 10/14/22 05/23/25 History mg-epa 160 rh-lwqh-yuoj-zeax capsule (Ocuvite Adult 50 Plus) pantoprazole 20 mg tablet,delayed 20 mg PO DAILY 10/14/22 05/23/25 History release sulfasalazine 500 mg tablet 1,000 mg PO DAILY 10/14/22 05/23/25 History apixaban 5 mg tablet (Eliquis) 5 mg PO BID 05/12/23 05/23/25 History Pro [place] Coq10 1 tab PO BID 05/23/25 05/23/25 History Visobiome 1 dose PO DAILY 05/23/25 05/23/25 History amlodipine 2.5 mg tablet 2.5 mg PO QAM 05/23/25 05/23/25 History ascorbic acid (vitamin C) 500 mg 1,000 mg PO DAILY 05/23/25 05/23/25 History chewable tablet calcium 600 mg (as carbonate)-vit 1 tab PO 4XWK 05/23/25 05/23/25 History D3 20 mcg (800 unit) chewable tablet (Caltrate plus D) cholecalciferol (vitamin D3) 25 25 mcg PO DAILY 05/23/25 05/23/25 History mcg (1,000 unit) tablet (Vitamin D3) cyclobenzaprine 5 mg tablet 5 mg PO HS PRN Muscle Spasm 05/23/25 05/23/25 History hydrocodone 5 mg-acetaminophen 325 1 tab PO Q6H PRN moderate pain. 05/23/25 05/23/25 History mg tablet metoprolol succinate 25 mg 12.5 mg PO DAILY 05/23/25 05/23/25 History tablet,extended release 24 hr xaojngox-eb-mwgwq 300 mcg-K 60 1 tab PO 4XWK 05/23/25 05/23/25 History mcg-lycop 600 mcg-lutein 300 mcg tablet (Centrum Silver Ultra Men's) nitroglycerin 0.4 mg sublingual 0.4 mg sublingual UD PRN Chest Pain 05/23/25 05/23/25 History tablet (Nitrostat) potassium 99 mg tablet 99 mg PO DAILY 05/23/25 05/23/25 History rosuvastatin 20 mg tablet 20 mg PO DAILY 05/23/25 05/23/25 History thiamine HCl (vitamin B1) 50 mg 50 mg PO DAILY 05/23/25 05/23/25 History tablet (Vitamin B-1) vibegron 75 mg tablet (Gemtesa) 75 mg PO QAM 05/23/25 05/23/25 History zinc glycinate 30 mg capsule 30 mg PO DAILY 05/23/25 05/23/25 History Past Med/Surg History Problem List (Updated 05/24/25 @ 05:41 by Jeff Waller MD) Anticoagulated on Eliquis (Acute) Ligament tear (Acute) Muscle strain of left gluteal region (Acute) Contusion of left lower extremity (Acute) Hip pain, left (Acute) History of orthopedic surgery (Acute) Tibial plateau fracture, left (Acute) Groin pain Sleep apnea BPH with obstruction/lower urinary tract symptoms Inguinal hernia Testicular discomfort Bronchitis Arthritis Elevated PSA Medical History (Updated 05/24/25 @ 05:41 by Jeff Waller MD) Gout Asthma Paroxysmal atrial flutter Paroxysmal atrial fibrillation Family History (Updated 03/23/21 @ 14:01 by Tho Rabago) Father Cancer Mother Heart disease Social History Smoking Status: Never smoker Hx Alcohol Use: No Hx Substance Use: No Preferred Language: Tamazight Communication Ability: Effective Machine Filler Required: No Beliefs That Will Affect Care: None marital status: Single Current Living Situation: Significant Other current occupational status: employed Other Information That Helps Us Care for You: No Feels Safe at Home: Yes Safety Concerns: Feels Safe At This Time Assistive Devices: Crutches, Glasses, Hospital Bed, Lift Chair, Walker and Wheelchair Review of Systems Review of Systems: The patient denies chest pain, palpitations, shortness of breath, dyspnea on exertion, cough, sore throat, fevers, chills, sweats, nausea, vomiting, blood in urine or stool, dysuria, urinary frequency or urgency, lightheadedness, dizziness, headache, memory loss, loss of consciousness, rash, abnormal bruising or bleeding, focal or generalized weakness, numbness or tingling in the right arm or leg. The review of systems is otherwise negative other than for that already noted above, and at least 10 systems have been reviewed. Physical Exam Physical Exam: The patient is awake, alert and oriented 3, well developed and well nourished, normocephalic and atraumatic, lying in bed and in no acute distress. HEENT--PERRL, EOMI, mucous membranes and oropharynx mildly dry. Likely early thrush Neck--supple. No JVD. No bruits. Thyroid normal, trachea midline, no adenopathy. Heart--normal S1 and S2. No murmurs, rubs or gallops. Lungs--clear bilaterally, no respiratory distress, no accessory muscle use. Abdomen--normal bowel sounds and soft. Nontender. Nondistended, no hernias or masses, no organomegaly. Extremities--left lower extremity is wrapped, and was told to not have removed for 2 weeks postsurgery. Right lower extremity with normal examination. Reproducible pain over the left SI joint and hip. Dermatologic--normal skin turgor, normal color, no abnormal lymph nodes, no rash. Neurologic--cranial nerves II through XII grossly intact. Rheumatologic--exam limited due to severe left SI joint, hip and lower extremity pain Psychiatric--normal affect. Results & Data Results & Data Vital Signs (Past 12 Hours) Vital Signs Temp Pulse Pulse Resp BP BP Pulse Ox 05/23/25 20:56 104 H 16 131/82 94 05/23/25 20:16 99 H 16 96 05/23/25 19:20 37.1 C 103 H 18 112/81 96 05/23/25 17:45 103 H 18 134/88 96 05/23/25 13:00 94 H 17 140/96 97 05/23/25 12:34 92 H 05/23/25 11:51 93 H 19 137/112 H 98 05/23/25 11:28 96 H 17 94 05/23/25 09:57 36.7 C 109 H 18 139/84 98 O2 Del Method 05/23/25 20:56 Room Air 05/23/25 20:16 Room Air 05/23/25 19:20 Room Air 05/23/25 17:45 Room Air 05/23/25 13:00 Room Air 05/23/25 12:34 05/23/25 11:51 Room Air 05/23/25 11:28 Room Air 05/23/25 09:57 Room Air Laboratory Results Laboratory Results WBC 6.85 K/ul (4.8-10.8) 05/23/25 11:17 RBC 4.32 M/uL (4.70-6.10) L 05/23/25 11:17 Hgb 14.0 g/dL (14.0-18.0) 05/23/25 11:17 POC Hgb 13.9 g/dl (14.0-18.0) L 05/23/25 11:23 Hct 39.8 % (42.0-52.0) L 05/23/25 11:17 POC Hct 41 % (42-52) L 05/23/25 11:23 MCV 92.1 fL (80.0-100.0) 05/23/25 11:17 MCH 32.4 pg (25.0-34.0) 05/23/25 11:17 MCHC 35.2 g/dL (32.0-36.0) 05/23/25 11:17 RDW Std Deviation 41.7 fL (36.4-46.3) 05/23/25 11:17 RDW Coeff of Lorrie 12.4 % (11.5-14.5) 05/23/25 11:17 Plt Count 364 K/uL (130-400) 05/23/25 11:17 MPV 8.3 fL (9.4-12.4) L 05/23/25 11:17 Immature Gran % (Auto) 1.2 % 05/23/25 11:17 Neut % (Auto) 64.7 % 05/23/25 11:17 Lymph % (Auto) 19.9 % 05/23/25 11:17 [place] % (Auto) 12.3 % 05/23/25 11:17 Eos % (Auto) 1.2 % 05/23/25 11:17 Baso % (Auto) 0.7 % 05/23/25 11:17 Neut # (Auto) 4.44 K/uL (1.40-6.50) 05/23/25 11:17 Lymph # (Auto) 1.36 K/uL (1.20-3.40) 05/23/25 11:17 [place] # (Auto) 0.84 K/uL (0.11-0.59) H 05/23/25 11:17 Eos # (Auto) 0.08 K/uL (0.00-0.50) 05/23/25 11:17 Baso # (Auto) 0.05 K/uL (0.00-0.20) 05/23/25 11:17 Immature Gran # (Auto) 0.08 K/uL (0.01-0.20) 05/23/25 11:17 PT 11.3 Seconds (9.0-12.0) 05/23/25 11:17 INR 1.1 (0.9-1.1) 05/23/25 11:17 APTT 30 Seconds (21-31) 05/23/25 11:17 PTT Ratio 1.1 05/23/25 11:17 POC Sodium 136 mmol/L (135-144) 05/23/25 11:23 Sodium 136 mmol/L (136-145) 05/23/25 11:17 POC Potassium 4.5 mmol/L (3.3-5.0) 05/23/25 11:23 Potassium 4.4 mmol/L (3.5-5.1) 05/23/25 11:17 POC Chloride 99 mmol/L (101-112) L 05/23/25 11:23 Chloride 100 mmol/L (98-107) 05/23/25 11:17 Carbon Dioxide 29 mmol/L (21-32) 05/23/25 11:17 POC Total CO2 27 mmol/L (24-31) 05/23/25 11:23 Anion Gap 7 (3-11) 05/23/25 11:17 POC Anion Gap 15.0 mmol/L (16-25) L 05/23/25 11:23 POC BUN 19 mg/dl (7-18) H 05/23/25 11:23 BUN 17 mg/dl (6-23) 05/23/25 11:17 Creatinine 0.70 mg/dl (0.6-1.4) 05/23/25 11:17 POC Creatinine 0.9 mg/dl (0.6-1.3) 05/23/25 11:23 Est Cr Clr Drug Dosing Not Reportable 05/23/25 11:17 eGFR 100.37 05/23/25 11:17 BUN/Creatinine Ratio 24.3 (10-20) H 05/23/25 11:17 Glucose 98 mg/dl (70-99(Fasting)) 05/23/25 11:17 POC Glucose (other) 97 mg/dl (70-99) 05/23/25 11:23 Lactate 0.9 mmol/L (0.4-2.0) 05/23/25 11:17 Calcium 9.8 mg/dl (8.6-10.3) 05/23/25 11:17 POC Ioniz Calcium Rc 1.21 mmol/l (1.12-1.32) 05/23/25 11:23 Total Bilirubin 0.7 mg/dl (0.2-1.0) 05/23/25 11:17 AST 16 U/L (13-39) 05/23/25 11:17 ALT 14 U/L (7-52) 05/23/25 11:17 Alkaline Phosphatase 47 U/L (34-104) 05/23/25 11:17 Total Creatine Kinase 79 U/L (30-223) 05/23/25 11:17 Total Protein 7.7 gm/dl (6.0-8.3) 05/23/25 11:17 Albumin 4.2 gm/dl (3.4-5.0) 05/23/25 11:17 Globulin 3.5 gm/dl (2.5-4.0) 05/23/25 11:17 Albumin/Globulin Ratio 1.2 (0.9-2) 05/23/25 11:17 Impressions Abdomen/Pelvis CT 05/23/25 10:45 CT SCAN OF THE ABDOMEN AND PELVIS WITH IV CONTRAST CLINICAL HISTORY: Fall. COMPARISON STUDY: Renal ultrasound August 12, 2024. TECHNIQUE: Following the IV administration of 120 cc of Optiray 320, CT scan of the abdomen and pelvis is performed from the lung bases to the proximal femora. Images are reviewed in the axial, sagittal, and coronal planes. IV contrast was administered without complication. A dose lowering technique was utilized adhering to the principles of ALARA. FINDINGS: There is an acute nondisplaced fracture of the anterolateral left 10th rib. There are calcified granulomas within the liver and spleen. No evidence for traumatic injury to the liver, spleen, adrenal glands, kidneys or pancreas. No biliary or pancreatic ductal dilatation. There is extensive sigmoid diverticulosis without evidence for acute diverticulitis. The caliber and wall thickness of small and large bowel are normal. No acute fractures within the lumbar spine, pelvis or hips are identified. There are old right pubic ring fractures of the garcia of old fracture of the left iliac bone. Left thigh stranding is noted. This is better depicted on the left lower extremity CTA which will be reported separately. IMPRESSION: 1. No acute traumatic findings within the abdomen or pelvis. 2. Acute nondisplaced left 10th rib fracture. ACT 112: Negative or not required by law. Electronically signed by: Denis Ayala M.D. 05/23/2025 12:[address] 05/23/25 10:45 CT SCAN OF THE CHEST WITH IV CONTRAST CLINICAL HISTORY: Fall. COMPARISON STUDY: Chest CT April 14, 2015. TECHNIQUE: Following the IV administration of 120 cc of Optiray 320, CT scan of the thorax was performed from the thoracic inlet to the upper abdomen. Images are reviewed in the axial, sagittal, and coronal planes. IV contrast was administered without complication. A dose lowering technique was utilized adhering to the principles of ALARA. CT DOSE: 3111.91 mGy.cm FINDINGS: There is no evidence for traumatic injury to the thoracic aorta. Size of the heart is normal. Is no pericardial effusion. Calcified mediastinal and left hilar lymph nodes are noted as well as calcified granulomas within the lungs. The findings suggest a previous granulomatous process. There is no pneumothorax or pleural effusion. No suspicious pulmonary nodules are present. No acute thoracic spine fractures are present. There is an acute nondisplaced fracture of the anterolateral left 10th rib. Abdomen and pelvis CT will be reported separately. IMPRESSION: 1. No evidence for traumatic injury to the thoracic aorta. 2. Acute nondisplaced anterolateral left 10th rib fracture. No pneumothorax. ACT 112: Negative or not required by law. Electronically signed by: Denis Ayala M.D. 05/23/2025 12:32 PM Lower Extremity CTA 05/23/25 10:45 CT angio LE LT w inc wo if don HISTORY: 69 years-old Male L leg cold, pain, recent surgery COMPARISON: CT lumbar spine same day, radiographs of the left femur 05/13/2025 TECHNIQUE: CTA left lower extremity was obtained with IV contrast. 3-D coronal and sagittal MIPS were obtained and submitted for review. All measurements were obtained according to NASCET criteria. A dose lowering technique was used consistent with the principals of ALARA. FINDINGS: CTA: The imaged external and internal iliac arteries are widely patent. The common femoral, and superficial femoral arteries are widely patent with atherosclerosis. Patent popliteal artery, tibioperoneal trunk, anterior tibial, posterior tibial and peroneal arteries. There is at least mild multifocal stenoses within the lower leg arteries secondary to atherosclerosis with three- vessel flow to the level of the ankle. No arterial occlusion or active extravasation. CT LOWER EXTREMITY: Colonic diverticulosis. Prostatomegaly. Moderate lateral prominent subcutaneous edema. Small to moderate joint effusion containing intra- articular debris/blood products along with intra-articular air foci. Lateral skin una are superficial to a 6 cm air and fluid-filled postoperative fluid collection within the subcutaneous tissues. There is an adjacent subcentimeter ossification/bone fragment on image 439 series 3. There is mild tricompartmental osteoarthritis of the knee. Acute comminuted proximal tibial and fibular fracture deformities are redemonstrated with fracture extending into the lateral tibial plateau. Status post ORIF with plate and screw fusion of the proximal tibial fracture. The hardware appears intact. IMPRESSION: 1. Satisfactory alignment of the acute proximal tibial fracture status post ORIF. 2. Unchanged alignment of the acute proximal fibular fracture. 3. Complex joint effusion/hemarthrosis with lateral subcutaneous postoperative fluid collection deep to the skin una. 4. CTA component of the study is within normal limits. ACT 112: Negative or not required by law. The above report was generated using voice recognition software. It may contain grammatical, syntax or spelling errors. Electronically signed by: Alex Johnson M.D. 05/23/2025 12:[address] 05/23/25 10:45 CT lumbar spine w con HISTORY: 69 years-old Male Fall, L low back pain s/p fall recently acute low- back pain status post fall COMPARISON: CT chest same day TECHNIQUE: Multiple axial CT images of the lumbar spine were obtained with IV contrast. A dose lowering technique was used consistent with the principals of ALARA. FINDINGS: Mild multilevel spondylitic spurring and facet arthrosis. Chondrocalcinosis of the L4-L5 disc space. No acute fracture, subluxation or erosion. Degenerative partial bony fusion of the left SI joint. No high-grade central canal or neural foraminal stenosis identified by CT. No acute intra-abdominal or intrapelvic abnormality identified. Colonic diverticulosis. IMPRESSION: Unremarkable exam without acute fracture or subluxation. ACT 112: Negative or not required by law. The above report was generated using voice recognition software. It may contain grammatical, syntax or spelling errors. Electronically signed by: Alex Johnson M.D. 05/23/2025 12:[address] 05/23/25 10:48 CT cervical spine wo con CT DOSE: 1156.18 mGy.cm CLINICAL HISTORY: fall, injury. COMPARISON: None TECHNIQUE: Multiple axial CT images of the cervical spine were obtained without contrast. A dose lowering technique was utilized adhering to the principles of ALARA. FINDINGS: There are mild diffuse degenerative changes at the cervical spine. No cervical spine fracture or subluxation seen. There are moderate carotid bulb calcifications. IMPRESSION: No cervical spine fracture seen. ACT 112: Negative or not required by law. The above report was generated using voice recognition software. It may contain grammatical, syntax or spelling errors. Electronically signed by: Nish Gloria M.D. 05/23/2025 12:[address] 05/23/25 10:48 CT SCAN OF THE BRAIN WITHOUT IV CONTRAST CLINICAL HISTORY: Fall. COMPARISON STUDY: Sinus CT April 14, 2015. TECHNIQUE: Unenhanced axial CT scan of the brain was performed from the vertex to the skull base. A dose lowering technique was utilized adhering to the principles of ALARA. FINDINGS: Brain parenchyma: No acute intracranial hemorrhage, midline shift or mass effect is present. Guzman-white matter differentiation is preserved. There are no extra- axial fluid collections. There are no findings to suggest acute dural sinus thrombosis or acute territorial infarct. Ventricles, sulci, cisterns: There is no hydrocephalus. Cavum septum pellucidum is incidentally noted. The basal cisterns are patent. Calvarium: There are no calvarial fractures. Sinuses and mastoids: The visualized paranasal sinuses are clear. The mastoid air cells are well pneumatized. Orbits: The bony orbits are grossly intact. IMPRESSION: 1. No acute intracranial findings. 2. No calvarial fractures. ACT 112: Negative or not required by law. Electronically signed by: Denis Ayala M.D. 05/23/2025 12:24 PM Hip MRI 05/23/25 15:31 EXAM: MR hip LT wo con CLINICAL HISTORY: Fall, L hip pain, anticoagulated. TECHNIQUE: Multiplanar, multiecho MRI of the left hip was performed without administration of intravenous contrast. Images were sent through PACs for diagnostic interpretation. COMPARISON: Prior CR study dated 05/13/2025 reviewed. FINDINGS: Bones and Joints: Subcutaneous edema along the lateral aspect of the left thigh is consistent with posttraumatic contusion. Old healed fracture of the right superior pubic ramus with mild cortical irregularity and angulation. Findings of osteitis pubis. Bilateral hip joint effusions noted. Bilateral hip joint space narrowing with subchondral sclerosis, cortical fibrillation, and chondrocalcinosis ? consistent with primary osteoarthritis. No femoral head collapse or fracture. No MRI evidence of femoroacetabular impingement. Capsulolabral Complex and Ligaments: Altered signal at the 12 o'clock position of the left labrum consistent with a partial labral tear. Altered signal in the left iliofemoral ligament consistent with a partial tear. Muscles and Tendons: Increased feathery STIR signal within the left gluteus rodrigo and rectus femoris muscles, consistent with grade I myogenic strain. No tendon rupture or avulsion. Soft Tissues: Bilateral inguinal hernias present. Overlying soft tissues are unremarkable apart from a lateral thigh contusion. Spine and Osseous Structures: Spondylodegenerative changes of the lumbosacral spine with multilevel disc pathology. No sacral or iliac marrow lesion identified. Other Findings: Incidental colonic diverticulosis without features of acute diverticulitis. IMPRESSION: 1. Posttraumatic contusion along the lateral aspect of the left thigh with associated subcutaneous edema. 2. Healed fracture of the right superior pubic ramus with cortical irregularity and angulation. 3. Osteitis pubis. 4. Grade I myogenic strain of the left gluteus rodrigo and rectus femoris muscles.. 5. Bilateral hip joint effusion. 6. 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 7. Partial tear of the capsulo-labral complex at the 12 o'clock position of the left hip. 8. Partial tear of the iliofemoral ligament. 9. Bilateral inguinal hernias. Electronically signed by Alfredo Marshall 05-23-2025 8:20 PM Lumbar Spine MRI 05/23/25 15:31 MRI of the lumbar spine without contrast Technique: Noncontrast multiplanar and multisequence MRI images of the lumbar spine were obtained. No comparison Impression: Vertebral bodies are all normal in height, alignment, and signal intensity. The discs all demonstrate mild loss of signal height and intensity. No significant canal or foraminal stenosis identified on this exam. Impression Unremarkable exam Electronically signed by Patrick Huang 05-23-2025 8:50 PM Code Status & VTE Plan Code Status Full code VTE Prophylaxis Plan VTE Prophylaxis will be ordered: Yes PG Care Time/CCT Total # of Minutes Spent Total Time Spent with Patient: Total time spent is greater than 50% in coordination of care (as documented) at patient's floor/unit and/or counseling patient: Coding Level of Care Code 61526 INT INP/OBS CARE 375MIN Diagnoses Tibial plateau fracture, left S82.142A Ligament tear T14.8XXA Muscle strain of left gluteal region S76.012A Anticoagulated on Eliquis Z79.01
[2025-05-23] MEDS: POLYETHYLENE (MIRALAX) 17 GM PACK PO STA (21:17)
[2025-05-23] MEDS: LIDOCAINE 5% 1 PATCH TD STA (21:19)
[2025-05-23] MEDS: LACTATED RINGER'S 1,000 ML IV STA (21:22)
[2025-05-23] MEDS: MoRPHine SULFATE 4 MG/ML 1 ML CARP\\VIAL IV PRN (22:18)
[2025-05-23] MEDS ORDERED: CALCIUM CARBONATE VITAMIN D3 PO SCH (23:43)
[2025-05-23] MEDS ORDERED: ONDANSETRON INJ 2 MG/ML 2 ML VIAL IV PRN (23:43)
[2025-05-23] MEDS ORDERED: [UNRECOGNIZED DRUG - OTHER] PO SCH (23:43)
[2025-05-23] MEDS ORDERED: NON-FORMULARY MEDICATION (Mv-Mn-Om3-Dha-Epa-Fish-Lut-Zea [Ocuvite Adult 50 Plus] 250 mg (9 PO SCH (23:43)
[2025-05-23] MEDS ORDERED: ACETAMINOPHEN 325 MG TAB PO PRN (23:43)
[2025-05-23] MEDS ORDERED: NITROGLYCERIN SL 0.4 MG/TAB TAB SL PRN (23:43)
[2025-05-24] MEDS: APIXABAN 5 MG TABLET PO SCH (00:42)
[2025-05-24] MEDS: CYCLOBENZAPRINE HCL 5 MG TAB PO PRN (00:42)
[2025-05-24 07:12] LABS: Hematocrit (blood only) 32.1 % (42.0-52.0); Hemoglobin 11.3 g/dL (14.0-18.0); Immature Granulocytes # (auto) 0.07 K/uL (0.01-0.20); Immature Granulocytes % (auto) 1.1 %; Mean Corpuscular Hemoglobin 32.5 pg (25.0-34.0); Mean Corpuscular Volume 92.2 fL (80.0-100.0); Platelet Count 325 K/uL (130-400); RDW Standard Deviation 42.0 fL (36.4-46.3); Red Blood Count 3.48 M/uL (4.70-6.10); White Blood Count 6.36 K/ul (4.8-10.8)
[2025-05-24] MEDS: SENNA 8.6 MG TAB PO SCH (07:49)
[2025-05-24] MEDS: POLYETHYLENE (MIRALAX) 17 GM PACK PO SCH (07:49)
[2025-05-24] MEDS: VIBEGRON 75 MG TAB PO SCH (07:49)
[2025-05-24] MEDS: ASPIRIN 81 MG ECTAB PO SCH (07:50)
[2025-05-24] MEDS: CHOLECALCIFEROL 25 MCG (1000 UNITS) TAB PO SCH (07:50)
[2025-05-24] MEDS: ASCORBIC ACID 500 MG TAB PO SCH (07:50)
[2025-05-24] MEDS: METOPROLOL SUCC 25MG EXT REL TAB PO SCH (07:50)
[2025-05-24] MEDS: SENNA 8.6 MG TAB PO ONE (07:51)
[2025-05-24] MEDS: POLYETHYLENE (MIRALAX) 17 GM PACK ONE (07:51)
[2025-05-24] MEDS: THIAMINE HCL 50 MG TABLET PO SCH (07:51)
[2025-05-24 08:06] LABS: Albumin Level 3.6 gm/dl (3.4-5.0); Anion Gap 5.0 (3-11); Blood Urea Nitrogen 17.0 mg/dl (6-23); Calcium 9.1 mg/dl (8.6-10.3); Carbon Dioxide 29.0 mmol/L (21-32); Chloride 103.0 mmol/L (98-107); Creatinine Clr Calc Pharmacy 104.1 ml/min; Glucose 102.0 mg/dl (70-99(Fasting)); Magnesium 2.2 mg/dl (1.7-2.4); Potassium 4.6 mmol/L (3.5-5.1); Sodium 137.0 mmol/L (136-145)
[2025-05-24] MEDS: ROSUVASTATIN CALCIUM 20 MG TAB PO SCH (08:38)
[2025-05-24] MEDS: FIRST - Mouthwash BLM 5 ML UDP PO SCH (13:39)
[2025-05-24] MEDS: GABAPENTIN 300 MG CAP PO SCH (13:39)
--- NOTE | 2025-05-24 15:08 | Hospitalist Progress Note ---
Date of Service May 24, 2025 Assessment & Plan (1) Tibial plateau fracture, left: (2) Ligament tear: (3) Muscle strain of left gluteal region: (4) Anticoagulated on Eliquis: Plan The patient is a 69-year-old male with a past medical history including paroxysmal atrial fibrillation, paroxysmal atrial flutter, inguinal hernia, vitamin D deficiency, carotid artery occlusion, mild persistent asthma, chronic anticoagulation on Eliquis, CESAR, BPH with LUTS, gout, diverticulosis, and history of colitis. The patient had a recent trauma on May 13, when he fell, he was seen at [facility] as an outpatient, and had x-rays performed of the left knee, and then subsequently a CT scan of the left knee which showed a tibial plateau fracture. He underwent orthopedic surgery by Dr. Ramires at [facility] on May 19. The patient reports that he also at the time of the fall had developed some left sacroiliac and left hip area pain, which has become more prevalent over the past few days. He and his daughter report that the Vicodin that he has been taking for the pain is not working adequately. He called the orthopedic surgical group [facility], and was advised to report to the nearest hospital emergency department. He presented to [facility] emergency department due to concerns regarding worsening left lower extremity pain, and also noted today a purple/blue hue to his toes and foot on the left side. He also notes sign ificant issues with constipation since he has been on the pain medications, not having moved his bowels for 3 days. He underwent multiple imaging studies at [facility] this evening, and was then referred for evaluation for admission to the [facility] hospitalist service. #Acute Left Hip Pain #Partial tear of the capsulo-labral complex #Partial tear of the iliofemoral ligament. - Add gabapentin 300mg TID, continue PRN oxycodone/flexeril - Consult to Orthopedics to rule out role of surgical corrections, establish weight bearing - bowel regimen as below #Paroxysmal atrial fibrillation/paroxysmal atrial flutter/hypertension- Continue apixaban, amlodipine, aspirin, metoprolol succinate rate controlled at this time #Constipation LR at 80 mL/h x 1 L MiraLAX powder 17 g p.o. now, and every morning Senokot 17.2 mg p.o. every morning enema vs suppository PRN if no improvement overnight #Left 10th rib fracture Patient without symptoms #S/P fall/left tibial plateau fracture/multiple ligament tears and left gluteal strain- Patient underwent left tibial plateau fracture repair by Dr. Ramires at [facility] on 05/19. His left leg is to remain wrapped he reports for 2 weeks. There was some purple/blue coloration changes noted in his foot this morning, which prompted his visit to the emergency department this evening. Normal circulation noted on imaging studies performed. In the ED, there is no abnormal coloring, and palpable pulses are noted. Due to the patient being on anticoagulation with Eliquis, which had been stopped 3 days prior to surgery, and was resumed today after surgery, the patient underwent multiple imaging studies in the ED this evening. CT scan of chest/abdomen/pelvis noted an acute nondisplaced left 10th rib fracture. CT angiography left lower extremity shows satisfactory alignment of the acute proximal tibial plateau fracture status post ORIF. Unchanged alignment of the acute proximal fibular fracture. Complex joint effusion/hemarthrosis with lateral subcutaneous postoperative fluid collection deep to the skin una. CTA component study was within normal limits. CT scan of lumbar spine was unremarkable for acute findings, but did note chondrocalcinosis of the L4-L5 disc space, and degeneration/partial bony fusion of the left SI joint. CT scan of cervical spine with no acute fractures. CT scan of head showed no calvarial fractures and no acute intracranial findings. MRI of hip was significant for a partial tear of the L-labral complex at the 12 o'clock position of the left hip. Partial tear of the iliofemoral ligament. Bilateral hip joint effusion. Bilateral degenerative hip joint disease due to primary osteoarthritis. Grade 1 myogenic strain at the left gluteus rodrigo and rectus femoris muscles. Healed fracture of the right superior pubic ramus. Posttraumatic contusion on the lateral aspect of the left thigh with associated subcutaneous edema. The findings of the MRI explained to the patient's primary complaint which is that of left sacroiliac and left hip pain. Conservative therapy, PT/OT, should be of benefit Lidoderm patch to be applied topically Patient is not able to use NSAIDs due to chronic use of Eliquis and aspirin. Tylenol 650 mg by mouth every 6 hours as needed for mild pain or fever Oxycodone 2.5 mg by mouth every 4 hours as needed for moderate pain Morphine sulfate 4 mg IV every 3 hours as needed for severe pain Continue cyclobenzaprine 5 mg at bedtime as needed Lidoderm patch/ointment to be applied over left sacroiliac joint and left hip Orthopedic follow-up. #Hyperlipidemia- Continue rosuvastatin #Ulcerative colitis- Continue sulfasalazine #GERD- Continue pantoprazole #BPH with LUTS/bladder spasm- Continue vibegron #OTC supplements- Patient will resume upon discharge Admission and Anticipated Discharge Date Admission Date: May 23, 2025 Subjective Doing okay this morning. Still experiencing sharp and knifelike pain into the left lateral hip at times. Not necessarily with all movements but sporadically. No more episodes of the numbness or color change to the lower extremity. Has mostly been on bedrest. Still having issues with constipation. Medications do seem to be helping. We talked at length about the MRI results. Also about the CT results. It appears the tibial plateau is healing as expected. The findings of the MRI suggest an injury that unlikely to be surgical patient is in agreement that is priority at this point would be to identify an appropriate structured rehab plan as well as pain medication to assist in his healing. No other new or different symptoms or concerns per patient. Physical Exam Physical Exam: The patient is awake, alert and oriented 3, well developed and well nourished, normocephalic and atraumatic, lying in bed and in no acute distress. HEENT--PERRL, EOMI, mucous membranes and oropharynx mildly dry. Likely early thrush Neck--supple. No JVD. No bruits. Thyroid normal, trachea midline, no adenopathy. Heart--normal S1 and S2. No murmurs, rubs or gallops. Lungs--clear bilaterally, no respiratory distress, no accessory muscle use. Abdomen--normal bowel sounds and soft. Nontender. Nondistended, no hernias or masses, no organomegaly. Extremities--left lower extremity is wrapped, and was told to not have removed for 2 weeks postsurgery. Right lower extremity with normal examination. Reproducible pain over the left SI joint and hip. Over the hip or anterior pelvis on the left Dermatologic--normal skin turgor, normal color, no palpable localized tenderness no abnormal lymph nodes, no rash. Neurologic--cranial nerves II through XII grossly intact. Distal sensorimotor examination in bilateral lower extremities intact, symmetric. Rheumatologic--exam limited due to severe left SI joint, hip and lower extremity pain Psychiatric--normal affect. Results & Data Results & Data Vital Signs (Past 12 Hours) Vital Signs Temp Pulse Pulse Resp BP Pulse Ox O2 Del Method 05/24/25 13:46 95 H 05/24/25 11:39 36.8 C 84 20 142/74 H 94 Room Air 05/24/25 08:15 36.4 C L 80 20 130/68 96 Room Air 05/24/25 07:13 70 05/24/25 04:03 36.3 C L 79 20 122/67 92 Room Air Laboratory Results 05/24/25 06:17 WBC 6.36 RBC 3.48 L Hgb 11.3 L Hct 32.1 L MCV 92.2 MCH 32.5 MCHC 35.2 RDW Std Deviation 42.0 RDW Coeff of Lorrie 12.4 Plt Count 325 MPV 8.4 L Immature Gran % (Auto) 1.1 Neut % (Auto) 53.0 Lymph % (Auto) 27.2 Branch % (Auto) 15.6 Eos % (Auto) 2.5 Baso % (Auto) 0.6 Neut # (Auto) 3.37 Lymph # (Auto) 1.73 Branch # (Auto) 0.99 H Eos # (Auto) 0.16 Baso # (Auto) 0.04 Immature Gran # (Auto) 0.07 Sodium 137 Potassium 4.6 Chloride 103 Carbon Dioxide 29 Anion Gap 5 BUN 17 Creatinine 0.77 Est Cr Clr Drug Dosing 104.1 eGFR 97.52 BUN/Creatinine Ratio 22.1 H Glucose 102 H Calcium 9.1 Phosphorus 4.5 Magnesium 2.2 Albumin 3.6 Diagnostic Findings Hip MRI 05/23/25 15:31 EXAM: MR hip LT wo con CLINICAL HISTORY: Fall, L hip pain, anticoagulated. TECHNIQUE: Multiplanar, multiecho MRI of the left hip was performed without administration of intravenous contrast. Images were sent through PACs for diagnostic interpretation. COMPARISON: Prior CR study dated 05/13/2025 reviewed. FINDINGS: Bones and Joints: Subcutaneous edema along the lateral aspect of the left thigh is consistent with posttraumatic contusion. Old healed fracture of the right superior pubic ramus with mild cortical irregularity and angulation. Findings of osteitis pubis. Bilateral hip joint effusions noted. Bilateral hip joint space narrowing with subchondral sclerosis, cortical fibrillation, and chondrocalcinosis ? consistent with primary osteoarthritis. No femoral head collapse or fracture. No MRI evidence of femoroacetabular impingement. Capsulolabral Complex and Ligaments: Altered signal at the 12 o'clock position of the left labrum consistent with a partial labral tear. Altered signal in the left iliofemoral ligament consistent with a partial tear. Muscles and Tendons: Increased feathery STIR signal within the left gluteus rodrigo and rectus femoris muscles, consistent with grade I myogenic strain. No tendon rupture or avulsion. Soft Tissues: Bilateral inguinal hernias present. Overlying soft tissues are unremarkable apart from a lateral thigh contusion. Spine and Osseous Structures: Spondylodegenerative changes of the lumbosacral spine with multilevel disc pathology. No sacral or iliac marrow lesion identified. Other Findings: Incidental colonic diverticulosis without features of acute diverticulitis. IMPRESSION: 1. Posttraumatic contusion along the lateral aspect of the left thigh with associated subcutaneous edema. 2. Healed fracture of the right superior pubic ramus with cortical irregularity and angulation. 3. Osteitis pubis. 4. Grade I myogenic strain of the left gluteus rodrigo and rectus femoris muscles.. 5. Bilateral hip joint effusion. 6. 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 7. Partial tear of the capsulo-labral complex at the 12 o'clock position of the left hip. 8. Partial tear of the iliofemoral ligament. 9. Bilateral inguinal hernias. Electronically signed by Alfredo Marshall 05-23-2025 8:20 PM Lumbar Spine MRI 05/23/25 15:31 MRI of the lumbar spine without contrast Technique: Noncontrast multiplanar and multisequence MRI images of the lumbar spine were obtained. No comparison Impression: Vertebral bodies are all normal in height, alignment, and signal intensity. The discs all demonstrate mild loss of signal height and intensity. No significant canal or foraminal stenosis identified on this exam. Impression Unremarkable exam Electronically signed by Patrick Huang 05-23-2025 8:50 PM PG Care Time/CCT Total # of Minutes Spent Total Time Spent with Patient: Total time spent is greater than 50% in coordination of care (as documented) at patient's floor/unit and/or counseling patient: Coding Level of Care Code 92780 SUB INP/OBS CARE MIN Diagnoses Tibial plateau fracture, left S82.142A Ligament tear T14.8XXA Muscle strain of left gluteal region S76.012A Anticoagulated on Eliquis Z79.01
[2025-05-24] MEDS: LIDOCAINE 5% 1 PATCH TD SCH (21:01)
--- NOTE | 2025-05-25 00:05 | Orthopedic Consultation ---
Date of Consultation May 25, 2025 Assessment & Plan (1) Hip pain, left: Patient with left hip pain secondary to a traumatic fall that occurred 12 days ago as described above. Recent [facility] Case and images were reviewed by and with Dr. Abdul. Patient with strong distal pulses, no sensory deficits, no evidence of compartment syndrome. Surgical dressing over the lower leg extending onto the thigh was left in place as this was a surgical dressing. The contusion and subcutaneous edema is secondary to his fall however many of the other findings in the left hip will be difficult to determine if this is acute versus chronic. Many of them are likely degenerative. Fortunately there is nothing that needs urgent surgical management. Everything the patient is experiencing in the left hip should either improve with time, physical therapy, or can be managed on an outpatient basis in the future. Patient would likely benefit from hip strengthening and range of motion physical therapy. He was asking questions about what he can and cannot do both here in the hospital and at home. He may benefit from home physical therapy after he is discharged as it does not sound like he is doing any physical therapy currently. Obviously will need to mind to the recent tibial plateau fracture, but can work on hip strengthening and range of motion. Patient is strictly nonweightbearing on the left lower extremity secondary to the tibial plateau fracture. The tibial plateau fracture management will guide weightbearing status moving forward, not the hip. Encouraged patient to continue care with his orthopedic surgeon for the tibial plateau fracture, and once this has healed, the left hip can be further addressed in the future if pain persists. Pain management per primary service. Warm or cool compresses to the left hip, whichever feels better when lidocaine patches are not being utilized. Orthopedics will sign off at this time. (2) Contusion of left lower extremity: (3) Muscle strain of left gluteal region: Supervising Physician Co-Signing Physician Notes I saw and examined the patient, reviewed his imaging findings of his left lower extremity, formulated the above plan, and performed the substantive portion of the visit. Agree with the above note. For his left hip, recommend physical therapy with full range of motion allowed, but needs to be NWB on the LLE due to the tibial plateau fracture. Straight leg raises OK. Treatment for his left tibial plateau fracture is per his treating surgeon. Patient will follow-up with his treating surgeon. History of Present Illness Reason for Consultation: Left hip pain Attending Physician: Trip Young MD History of Present Illness Micheal Moyer is a 69-year-old male with a history of paroxysmal atrial fibrillation, paroxysmal atrial flutter, inguinal hernia, vitamin D deficiency, carotid artery occlusion, mild persistent asthma, chronic anticoagulation on Eliquis, sleep apnea, BPH with lower urinary tract symptoms, gout, diverticulosis, history of colitis. Patient was recently involved in an injury on May 13 when he fell after being kicked by a large animal. Patient had x- rays and subsequently a CT scan of his left knee which showed a tibial plateau fracture. He underwent orthopedic surgery with Dr. Ramires at [facility] on May 19. Patient also developed left hip pain that began around the fall and subsequently progressed over the past few days. His pain medication became inadequate in controlling his pain and he was referred to the nearest emergency department by his orthopedic surgical group so he presented to [facility] noting a purple/blue hue to his toes and foot which improved with elevation after coming to the emergency department. Patient underwent multiple imaging studies in the emergency department and was found to have a left 10th rib nondisplaced fracture, intact ORIF of the left tibial plateau, unremarkable lumbar MRI, left hip MRI showed a contusion along the lateral aspect of the thigh with subcutaneous edema, osteoarthritis, partial labral tear, partial tear of the iliofemoral ligament, gluteus rodrigo and rectus femoris strains, no fractures. Patient was not interested in being transferred to [facility] from our emergency department, and was subsequently admitted to our hospital for pain control and ongoing management. Patient states that he understands he needs to maintain continuity of care regarding his left tibial plateau fracture. He is wondering what can be done about his left hip pain moving forward. He denies any numbness or tingling leg or toes and is able to move his ankle and toes. Allergies Allergy/AdvReac Type Severity Reaction Status Date / Time atorvastatin [From Lipitor] Allergy Verified 10/14/24 15:33 Home Medications Medication Instructions Recorded Confirmed Type A0-X-vvaeh-soy 1 cap PO DAILY 10/14/22 05/23/25 History ztgzy-ppaertxldz-metujshm 1,200 unit-15 unit-35 mcg cap (Prostate 2.4) aspirin 81 mg tablet,delayed 81 mg PO Q OTHER DAY 10/14/22 05/23/25 History release bwrxuyrw-mdc-kaakb4 250 mg-dha 90 1 cap PO 3XWK 10/14/22 05/23/25 History mg-epa 160 cr-xzjj-nvjn-zeax capsule (Ocuvite Adult 50 Plus) pantoprazole 20 mg tablet,delayed 20 mg PO DAILY 10/14/22 05/23/25 History release sulfasalazine 500 mg tablet 1,000 mg PO DAILY 10/14/22 05/23/25 History apixaban 5 mg tablet (Eliquis) 5 mg PO BID 05/12/23 05/23/25 History Pro Thurman Coq10 1 tab PO BID 05/23/25 05/23/25 History Visobiome 1 dose PO DAILY 05/23/25 05/23/25 History amlodipine 2.5 mg tablet 2.5 mg PO QAM 05/23/25 05/23/25 History ascorbic acid (vitamin C) 500 mg 1,000 mg PO DAILY 05/23/25 05/23/25 History chewable tablet calcium 600 mg (as carbonate)-vit 1 tab PO 4XWK 05/23/25 05/23/25 History D3 20 mcg (800 unit) chewable tablet (Caltrate plus D) cholecalciferol (vitamin D3) 25 25 mcg PO DAILY 05/23/25 05/23/25 History mcg (1,000 unit) tablet (Vitamin D3) cyclobenzaprine 5 mg tablet 5 mg PO HS PRN Muscle Spasm 05/23/25 05/23/25 History hydrocodone 5 mg-acetaminophen 325 1 tab PO Q6H PRN moderate pain. 05/23/25 05/23/25 History mg tablet metoprolol succinate 25 mg 12.5 mg PO DAILY 05/23/25 05/23/25 History tablet,extended release 24 hr fcoiscct-im-vjswf 300 mcg-K 60 1 tab PO 4XWK 05/23/25 05/23/25 History mcg-lycop 600 mcg-lutein 300 mcg tablet (Centrum Silver Ultra Men's) nitroglycerin 0.4 mg sublingual 0.4 mg sublingual UD PRN Chest Pain 05/23/25 05/23/25 History tablet (Nitrostat) potassium 99 mg tablet 99 mg PO DAILY 05/23/25 05/23/25 History rosuvastatin 20 mg tablet 20 mg PO DAILY 05/23/25 05/23/25 History thiamine HCl (vitamin B1) 50 mg 50 mg PO DAILY 05/23/25 05/23/25 History tablet (Vitamin B-1) vibegron 75 mg tablet (Gemtesa) 75 mg PO QAM 05/23/25 05/23/25 History zinc glycinate 30 mg capsule 30 mg PO DAILY 05/23/25 05/23/25 History Patient History Medical History Gout Asthma Paroxysmal atrial flutter Paroxysmal atrial fibrillation Family History Father Cancer Mother Heart disease Social History Smoking Status: Never smoker Hx Alcohol Use: No Hx Substance Use: No Preferred Language: Icelandic Communication Ability: Effective 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 Conversational. Cardiovascular: Left lower extremity: DP pulse 2+. Capillary refill less than 2 seconds in left toes. Distal skin is pink with no cyanosis or discoloration. Musculoskeletal: Back exam: There is no midline lumbar tenderness. Left lower extremity: There is a lidocaine patch just posterior to the hip. There is some mild tenderness just posterior to the greater trochanter. Ecchymotic changes in the medial thigh. No calf tenderness. No tenderness in the medial thigh. Orthopedic dressing is present from the foot to the distal thigh. This was left in place as it was applied in OR and patient is to leave this in place until follow-up appointments. There is no significant pain with passive hip flexion keeping the knee fully extended. No pain with passive logroll of the hip. Strength 5/5 with left ankle plantarflexion, dorsiflexion, eversion. Neurologic: No sensory deficits in left toes to light touch Results & Data Vital Signs (Past 12 Hours) Vital Signs Temp Pulse Pulse Resp BP Pulse Ox O2 Del Method 05/24/25 23:04 97.9 F 87 18 132/69 93 Room Air 05/24/25 19:41 97.9 F 90 20 142/82 H 94 Room Air 05/24/25 15:05 97.9 F 91 H 20 161/79 H 94 Room Air 05/24/25 13:46 95 H Laboratory Results 05/24/25 06:17 WBC 6.36 RBC 3.48 L Hgb 11.3 L Hct 32.1 L MCV 92.2 MCH 32.5 MCHC 35.2 RDW Std Deviation 42.0 RDW Coeff of Lorrie 12.4 Plt Count 325 MPV 8.4 L Immature Gran % (Auto) 1.1 Neut % (Auto) 53.0 Lymph % (Auto) 27.2 [place] % (Auto) 15.6 Eos % (Auto) 2.5 Baso % (Auto) 0.6 Neut # (Auto) 3.37 Lymph # (Auto) 1.73 [place] # (Auto) 0.99 H Eos # (Auto) 0.16 Baso # (Auto) 0.04 Immature Gran # (Auto) 0.07 Sodium 137 Potassium 4.6 Chloride 103 Carbon Dioxide 29 Anion Gap 5 BUN 17 Creatinine 0.77 Est Cr Clr Drug Dosing 104.1 eGFR 97.52 BUN/Creatinine Ratio 22.1 H Glucose 102 H Calcium 9.1 Phosphorus 4.5 Magnesium 2.2 Albumin 3.6 Diagnostic Findings Hip MRI 05/23/25 15:31 EXAM: MR hip LT wo con CLINICAL HISTORY: Fall, L hip pain, anticoagulated. TECHNIQUE: Multiplanar, multiecho MRI of the left hip was performed without administration of intravenous contrast. Images were sent through PACs for diagnostic interpretation. COMPARISON: Prior CR study dated 05/13/2025 reviewed. FINDINGS: Bones and Joints: Subcutaneous edema along the lateral aspect of the left thigh is consistent with posttraumatic contusion. Old healed fracture of the right superior pubic ramus with mild cortical irregularity and angulation. Findings of osteitis pubis. Bilateral hip joint effusions noted. Bilateral hip joint space narrowing with subchondral sclerosis, cortical fibrillation, and chondrocalcinosis ? consistent with primary osteoarthritis. No femoral head collapse or fracture. No MRI evidence of femoroacetabular impingement. Capsulolabral Complex and Ligaments: Altered signal at the 12 o'clock position of the left labrum consistent with a partial labral tear. Altered signal in the left iliofemoral ligament consistent with a partial tear. Muscles and Tendons: Increased feathery STIR signal within the left gluteus rodrigo and rectus femoris muscles, consistent with grade I myogenic strain. No tendon rupture or avulsion. Soft Tissues: Bilateral inguinal hernias present. Overlying soft tissues are unremarkable apart from a lateral thigh contusion. Spine and Osseous Structures: Spondylodegenerative changes of the lumbosacral spine with multilevel disc pathology. No sacral or iliac marrow lesion identified. Other Findings: Incidental colonic diverticulosis without features of acute diverticulitis. IMPRESSION: 1. Posttraumatic contusion along the lateral aspect of the left thigh with associated subcutaneous edema. 2. Healed fracture of the right superior pubic ramus with cortical irregularity and angulation. 3. Osteitis pubis. 4. Grade I myogenic strain of the left gluteus rodrigo and rectus femoris muscles.. 5. Bilateral hip joint effusion. 6. 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 7. Partial tear of the capsulo-labral complex at the 12 o'clock position of the left hip. 8. Partial tear of the iliofemoral ligament. 9. Bilateral inguinal hernias. Electronically signed by Alfredo Marshall 05-23-2025 8:20 PM Lumbar Spine MRI 05/23/25 15:31 MRI of the lumbar spine without contrast Technique: Noncontrast multiplanar and multisequence MRI images of the lumbar spine were obtained. No comparison Impression: Vertebral bodies are all normal in height, alignment, and signal intensity. The discs all demonstrate mild loss of signal height and intensity. No significant canal or foraminal stenosis identified on this exam. Impression Unremarkable exam Electronically signed by Patrick Huang 05-23-2025 8:50 PM
[2025-05-25] MEDS: CYCLOBENZAPRINE HCL 10 MG TAB PO PRN (06:13)
[2025-05-25 07:24] LABS: Hematocrit (blood only) 34.2 % (42.0-52.0); Hemoglobin 11.7 g/dL (14.0-18.0); Immature Granulocytes # (auto) 0.08 K/uL (0.01-0.20); Immature Granulocytes % (auto) 1.3 %; Mean Corpuscular Hemoglobin 31.9 pg (25.0-34.0); Mean Corpuscular Volume 93.2 fL (80.0-100.0); Platelet Count 331 K/uL (130-400); RDW Standard Deviation 42.5 fL (36.4-46.3); Red Blood Count 3.67 M/uL (4.70-6.10); White Blood Count 6.32 K/ul (4.8-10.8)
[2025-05-25 07:44] LABS: Albumin Level 3.8 gm/dl (3.4-5.0); Anion Gap 7.0 (3-11); Blood Urea Nitrogen 15.0 mg/dl (6-23); Calcium 9.2 mg/dl (8.6-10.3); Carbon Dioxide 29.0 mmol/L (21-32); Chloride 102.0 mmol/L (98-107); Creatinine Clr Calc Pharmacy 104.3 ml/min; Glucose 112.0 mg/dl (70-99(Fasting)); Magnesium 2.2 mg/dl (1.7-2.4); Potassium 4.2 mmol/L (3.5-5.1); Sodium 138.0 mmol/L (136-145)
[2025-05-25] MEDS: REMOVE LIDODERM PATCH SCH (08:25)
[2025-05-25] MEDS: LACTULOSE SYRUP 20 GM/30 ML UDC PO SCH (13:00)
[2025-05-25] MEDS: MAGNESIUM HYDROXIDE SUSP 30 ML UDC PO PRN (13:00)
--- NOTE | 2025-05-25 14:17 | Hospitalist Progress Note ---
Date of Service May 25, 2025 Assessment & Plan (1) Tibial plateau fracture, left: (2) Ligament tear: (3) Muscle strain of left gluteal region: (4) Anticoagulated on Eliquis: Plan The patient is a 69-year-old male with a past medical history including paroxysmal atrial fibrillation, paroxysmal atrial flutter, inguinal hernia, vitamin D deficiency, carotid artery occlusion, mild persistent asthma, chronic anticoagulation on Eliquis, CESAR, BPH with LUTS, gout, diverticulosis, and history of colitis. The patient had a recent trauma on May 13, when he fell, he was seen at [facility] as an outpatient, and had x-rays performed of the left knee, and then subsequently a CT scan of the left knee which showed a tibial plateau fracture. He underwent orthopedic surgery by Dr. Ramires at [facility] on May 19. The patient reports that he also at the time of the fall had developed some left sacroiliac and left hip area pain, which has become more prevalent over the past few days. He and his daughter report that the Vicodin that he has been taking for the pain is not working adequately. He called the orthopedic surgical group [facility], and was advised to report to the nearest hospital emergency department. He presented to [facility] emergency department due to concerns regarding worsening left lower extremity pain, and also noted today a purple/blue hue to his toes and foot on the left side. He also notes sign ificant issues with constipation since he has been on the pain medications, not having moved his bowels for 3 days. He underwent multiple imaging studies at [facility] this evening, and was then referred for evaluation for admission to the [facility] hospitalist service. #Acute Left Hip Pain #Partial tear of the capsulo-labral complex #Partial tear of the iliofemoral ligament. - Continue gabapentin 300mg TID - no surgical intervention indicated per orthopedics, nonweightbearing with the left side secondary to his left knee procedure. Consult to physical therapy for range of motion and Preservation exercises. - Oxycodone extended release 10 mg twice daily to cover his baseline movement, Ultram 50 mg every 4 hours as needed, breakthrough morphine in the short-term - bowel regimen as below #Paroxysmal atrial fibrillation/paroxysmal atrial flutter/hypertension- Continue apixaban, amlodipine, aspirin, metoprolol succinate rate controlled at this time #Constipation LR at 80 mL/h x 1 L Added lactulose, PRN Senna S and suppository PRN MiraLAX powder 17 g p.o. now, and every morning enema vs suppository in AM if no results #Left 10th rib fracture Patient without symptoms, conservative measures #S/P fall/left tibial plateau fracture/multiple ligament tears and left gluteal strain- Patient underwent left tibial plateau fracture repair by Dr. Ramires at [facility] on 05/19. His left leg is to remain wrapped he reports for 2 weeks. There was some purple/blue coloration changes noted in his foot this morning, which prompted his visit to the emergency department this evening. Normal circulation noted on imaging studies performed. In the ED, there is no abnormal coloring, and palpable pulses are noted. Due to the patient being on anticoagulation with Eliquis, which had been stopped 3 days prior to surgery, and was resumed today after surgery, the patient underwent multiple imaging studies in the ED this evening. CT scan of chest/abdomen/pelvis noted an acute nondisplaced left 10th rib fracture. CT angiography left lower extremity shows satisfactory alignment of the acute proximal tibial plateau fracture status post ORIF. Unchanged alignment of the acute proximal fibular fracture. Complex joint effusion/hemarthrosis with late ral subcutaneous postoperative fluid collection deep to the skin una. CTA component study was within normal limits. CT scan of lumbar spine was unremarkable for acute findings, but did note chond rocalcinosis of the L4-L5 disc space, and degeneration/partial bony fusion of the left SI joint. CT scan of cervical spine with no acute fractures. CT scan of head showed no calvarial fractures and no acute intracranial findings. MRI of hip was significant for a partial tear of the L-labral complex at the 12 o'clock position of the left hip. Partial tear of the iliofemoral ligament. Bilateral hip joint effusion. Bilateral degenerative hip joint disease due to primary osteoarthritis. Grade 1 myogenic strain at the left gluteus rodrigo and rectus femoris muscles. Healed fracture of the right superior pubic ramus. Posttraumatic contusion on the lateral aspect of the left thigh with associated subcutaneous edema. The findings of the MRI explained to the patient's primary complaint which is that of left sacroiliac and left hip pain. Conservative therapy, PT/OT, should be of benefit Lidoderm patch to be applied topically Patient is not able to use NSAIDs due to chronic use of Eliquis and aspirin. Tylenol 650 mg by mouth every 6 hours as needed for mild pain or fever Oxycodone 2.5 mg by mouth every 4 hours as needed for moderate pain Morphine sulfate 4 mg IV every 3 hours as needed for severe pain Continue cyclobenzaprine 5 mg at bedtime as needed Lidoderm patch/ointment to be applied over left sacroiliac joint and left hip Orthopedic follow-up per notes, appreciate recommendations. #Hyperlipidemia- Continue rosuvastatin #Ulcerative colitis- Continue sulfasalazine #GERD- Continue pantoprazole #BPH with LUTS/bladder spasm- Continue vibegron #OTC supplements- Patient will resume upon discharge Admission and Anticipated Discharge Date Admission Date: May 23, 2025 Subjective Doing okay this morning. Still having episodes of pain although he does think gabapentin seems to be helping with the severity. Still has not had a bowel movement as of yet. He has tried several times. States that he uses lactulose at home on occasion. Has also used another laxative which he describes as psyllium. Symptoms specifically associated with work. No abdominal pain or discomfort no nausea or vomiting. We discussed his orthopedics consultation. The lack of need for any other surgical intervention. And the fact that his knee procedure will dictate weightbearing status. Will have PT OT see him to establish range of motion exercises. Once pain is controlled we will establish therapy regimen for him likely discharge to either rehab or home. Patient states he is very willing to employ home health services to help with therapy Physical Exam Physical Exam: The patient is awake, alert and oriented 3, well developed and well nourished, normocephalic and atraumatic, lying in bed and in no acute distress. HEENT--PERRL, EOMI, mucous membranes and oropharynx mildly dry. Likely early thrush Neck--supple. No JVD. No bruits. Thyroid normal, trachea midline, no adenopathy. Heart--normal S1 and S2. No murmurs, rubs or gallops. Lungs--clear bilaterally, no respiratory distress, no accessory muscle use. Abdomen--normal bowel sounds and soft. Nontender. Nondistended, no hernias or masses, no organomegaly. Extremities--left lower extremity is wrapped, and was told to not have removed for 2 weeks postsurgery. Right lower extremity with normal examination. Reproducible pain over the left SI joint and hip. Over the hip or anterior pelvis on the left Dermatologic--normal skin turgor, normal color, no palpable localized tenderness no abnormal lymph nodes, no rash. Neurologic--cranial nerves II through XII grossly intact. Distal sensorimotor examination in bilateral lower extremities intact, symmetric. Rheumatologic--exam limited due to severe left SI joint, hip and lower extremity pain Psychiatric--normal affect. Results & Data Results & Data Vital Signs (Past 12 Hours) Vital Signs Temp Pulse Pulse Resp BP Pulse Ox O2 Del Method 05/25/25 13:43 83 05/25/25 11:29 36.5 C 79 16 145/77 H 95 Room Air 05/25/25 07:36 36.3 C L 77 16 122/67 94 Room Air 05/25/25 07:34 73 05/25/25 03:28 36.4 C 80 20 137/81 93 Room Air Laboratory Results 05/25/25 05:59 WBC 6.32 RBC 3.67 L Hgb 11.7 L Hct 34.2 L MCV 93.2 MCH 31.9 MCHC 34.2 RDW Std Deviation 42.5 RDW Coeff of Lorrie 12.4 Plt Count 331 MPV 8.5 L Immature Gran % (Auto) 1.3 Neut % (Auto) 56.7 Lymph % (Auto) 24.5 Tyler % (Auto) 13.8 Eos % (Auto) 3.2 Baso % (Auto) 0.5 Neut # (Auto) 3.59 Lymph # (Auto) 1.55 Tyler # (Auto) 0.87 H Eos # (Auto) 0.20 Baso # (Auto) 0.03 Immature Gran # (Auto) 0.08 Sodium 138 Potassium 4.2 Chloride 102 Carbon Dioxide 29 Anion Gap 7 BUN 15 Creatinine 0.77 Est Cr Clr Drug Dosing 104.3 eGFR 97.52 BUN/Creatinine Ratio 19.5 Glucose 112 H Calcium 9.2 Phosphorus 3.7 Magnesium 2.2 Albumin 3.8 PG Care Time/CCT Total # of Minutes Spent Total Time Spent with Patient: Total time spent is greater than 50% in coordination of care (as documented) at patient's floor/unit and/or counseling patient: Coding Level of Care Code 77235 SUB INP/OBS CARE 2/35MIN Diagnoses Tibial plateau fracture, left S82.142A Ligament tear T14.8XXA Muscle strain of left gluteal region S76.012A Anticoagulated on Eliquis Z79.01
[2025-05-25] MEDS: DOCUSATE SODIUM/SENNA 50/8.6MG TAB PO SCH (21:05)
[2025-05-26 06:50] LABS: Hematocrit (blood only) 32.7 % (42.0-52.0); Hemoglobin 11.8 g/dL (14.0-18.0); Immature Granulocytes # (auto) 0.06 K/uL (0.01-0.20); Immature Granulocytes % (auto) 1.0 %; Mean Corpuscular Hemoglobin 33.1 pg (25.0-34.0); Mean Corpuscular Volume 91.9 fL (80.0-100.0); Platelet Count 348 K/uL (130-400); RDW Standard Deviation 41.4 fL (36.4-46.3); Red Blood Count 3.56 M/uL (4.70-6.10); White Blood Count 5.98 K/ul (4.8-10.8)
[2025-05-26 07:12] LABS: Albumin Level 3.8 gm/dl (3.4-5.0); Anion Gap 5.0 (3-11); Blood Urea Nitrogen 17.0 mg/dl (6-23); Calcium 9.1 mg/dl (8.6-10.3); Carbon Dioxide 29.0 mmol/L (21-32); Chloride 102.0 mmol/L (98-107); Creatinine Clr Calc Pharmacy 107.1 ml/min; Glucose 108.0 mg/dl (70-99(Fasting)); Magnesium 2.3 mg/dl (1.7-2.4); Potassium 4.3 mmol/L (3.5-5.1); Sodium 136.0 mmol/L (136-145)
[2025-05-26] MEDS ORDERED: KETOROLAC TROMETHAMINE 15 MG/ML VIAL IV PRN (09:48)
--- NOTE | 2025-05-26 14:17 | Hospitalist Progress Note ---
Date of Service May 26, 2025 Assessment & Plan (1) Tibial plateau fracture, left: (2) Ligament tear: (3) Muscle strain of left gluteal region: (4) Anticoagulated on Eliquis: Plan The patient is a 69-year-old male with a past medical history including paroxysmal atrial fibrillation, paroxysmal atrial flutter, inguinal hernia, vitamin D deficiency, carotid artery occlusion, mild persistent asthma, chronic anticoagulation on Eliquis, CESAR, BPH with LUTS, gout, diverticulosis, and history of colitis. The patient had a recent trauma on May 13, when he fell, he was seen at [facility] as an outpatient, and had x-rays performed of the left knee, and then subsequently a CT scan of the left knee which showed a tibial plateau fracture. He underwent orthopedic surgery by Dr. Ramires at [facility] on May 19. The patient reports that he also at the time of the fall had developed some left sacroiliac and left hip area pain, which has become more prevalent over the past few days. He and his daughter report that the Vicodin that he has been taking for the pain is not working adequately. He called the orthopedic surgical group [facility], and was advised to report to the nearest hospital emergency department. He presented to [facility] emergency department due to concerns regarding worsening left lower extremity pain, #Acute Left Hip Pain #Partial tear of the capsulo-labral complex #Partial tear of the iliofemoral ligament. - Continue gabapentin 300mg TID - no surgical intervention indicated per orthopedics, nonweightbearing with the left side secondary to his left knee procedure. -Consult to physical therapy for range of motion and Preservation exercises. - Oxycodone extended release 10 mg twice daily to cover his baseline movement, Ultram 50 mg every 4 hours as needed, breakthrough morphine in the short-term - bowel regimen as below -Will add IV Toradol for one day #Paroxysmal atrial fibrillation/paroxysmal atrial flutter/hypertension- Continue apixaban, amlodipine, aspirin, metoprolol succinate rate controlled at this time #Constipation Added lactulose, PRN Senna S and suppository PRN MiraLAX powder 17 g p.o. now, and every morning Dulcolax suppository #Left 10th rib fracture Patient without symptoms, conservative measures #S/P fall/left tibial plateau fracture/multiple ligament tears and left gluteal strain- Patient underwent left tibial plateau fracture repair by Dr. Ramires at [facility] on 05/19. His left leg is to remain wrapped he reports for 2 weeks. There was some purple/blue coloration changes noted in his foot, which prompted his visit to the emergency department Normal circulation noted on imaging studies performed. In the ED, there is no abnormal coloring, and palpable pulses are noted. Due to the patient being on anticoagulation with Eliquis, which had been stopped 3 days prior to surgery, and was resumed today after surgery, the patient underwent multiple imaging studies in the ED this evening. CT scan of chest/abdomen/pelvis noted an acute nondisplaced left 10th rib fracture. CT angiography left lower extremity shows satisfactory alignment of the acute proximal tibial plateau fracture status post ORIF. Unchanged alignment of the acute proximal fibular fracture. Complex joint effusion/hemarthrosis with lateral subcutaneous postoperative fluid collection deep to the skin una. CTA component study was within normal limits. CT scan of lumbar spine was unremarkable for acute findings, but did note chondrocalcinosis of the L4-L5 disc space, and degeneration/partial bony fusion of the left SI joint. CT scan of cervical spine with no acute fractures. CT scan of head showed no calvarial fractures and no acute intracranial findings. MRI of hip was significant for a partial tear of the L-labral complex at the 12 o'clock position of the left hip. Partial tear of the iliofemoral ligament. Bilateral hip joint effusion. Bilateral degenerative hip joint disease due to primary osteoarthritis. Grade 1 myogenic strain at the left gluteus rodrigo and rectus femoris muscles. Healed fracture of the right superior pubic ramus. Posttraumatic contusion on the lateral aspect of the left thigh with associated subcutaneous edema. The findings of the MRI explained to the patient's primary complaint which is that of left sacroiliac and left hip pain. Conservative therapy, PT/OT, should be of benefit Orthopedic follow-up per notes, appreciate recommendations. #Hyperlipidemia- Continue rosuvastatin #Ulcerative colitis- Continue sulfasalazine #GERD- Continue pantoprazole #BPH with LUTS/bladder spasm- Continue vibegron #OTC supplements- Patient will resume upon discharge Disposition: Hopefully discharge home with home health tomorrow Admission and Anticipated Discharge Date Admission Date: May 23, 2025 Subjective Patient seen and examined today, says his pain is still not on the great control, I told him I was going to add IV Toradol for 1 more day Review of Systems Review of Systems: All systems reviewed are negative, apart from the ones contained in the history. Physical Exam Physical Exam: The patient is awake, alert and oriented 3, well developed and well nourished, normocephalic and atraumatic, lying in bed and in no acute distress. HEENT--PERRL, EOMI, mucous membranes and oropharynx mildly dry Neck--supple. No JVD. No bruits. Thyroid normal, trachea midline, no adenopathy. Heart--normal S1 and S2. No murmurs, rubs or gallops. Lungs--clear bilaterally, no respiratory distress, no accessory muscle use. Abdomen--normal bowel sounds and soft. Extremities--no cyanosis or clubbing. Left leg in bandage Dermatologic--normal skin turgor, normal color, no abnormal lymph nodes, no rash. Neurologic--cranial nerves II through XII grossly intact. Rheumatologic--normal range of motion. Psychiatric--normal affect. Results & Data Results & Data Vital Signs (Past 12 Hours) Vital Signs Temp Pulse Pulse Resp BP Pulse Ox O2 Del Method 05/26/25 13:55 88 05/26/25 11:53 97.5 F L 89 20 141/87 H 93 Room Air 05/26/25 07:47 97.7 F 80 18 135/76 96 Room Air 05/26/25 07:17 69 05/26/25 03:52 97.5 F L 79 20 130/69 92 Room Air PG Care Time/CCT Total # of Minutes Spent Total Time Spent with Patient: Total time spent is greater than 50% in coordination of care (as documented) at patient's floor/unit and/or counseling patient: Coding Level of Care Code 92165 SUB INP/OBS CARE 2/35MIN Diagnoses Tibial plateau fracture, left S82.142A Ligament tear T14.8XXA Muscle strain of left gluteal region S76.012A Anticoagulated on Eliquis Z79.01 Time Spent (min) 35
[2025-05-26 19:43] VITALS: RESP 18
[2025-05-26 23:21] VITALS: O2SAT 93
[2025-05-27 07:29] VITALS: BP 144/89; PULSE 92; TEMP 97.3
--- NOTE | 2025-05-27 11:00 | Discharge Summary ---
Date of Service May 27, 2025 Admission HPI Per Admitting Provider The patient is a 69-year-old male with a past medical history including paroxysmal atrial fibrillation, paroxysmal atrial flutter, inguinal hernia, vitamin D deficiency, carotid artery occlusion, mild persistent asthma, chronic anticoagulation on Eliquis, CESAR, BPH with LUTS, gout, diverticulosis, and history of colitis. The patient had a recent trauma on May 13, when he fell, he was seen at [facility] as an outpatient, and had x-rays performed of the left knee, and then subsequently a CT scan of the left knee which showed a tibial plateau fracture. He underwent orthopedic surgery by Dr. Ramires at [facility] on May 19. The patient reports that he also at the time of the fall had developed some left sacroiliac and left hip area pain, which has become more prevalent over the past few days. He and his daughter report that the Vicodin that he has been taking for the pain is not working adequately. He called the orthopedic surgical group [facility], and was advised to report to the nearest hospital emergency department. He presented to [facility] emergency department due to concerns regarding worsening left lower extremity pain, and also noted today a purple/blue hue to his toes and foot on the left side.. He underwent multiple imaging studies at [facility] this evening, and was then referred for evaluation for admission to the [facility] hospitalist service. Admission Exam (Per Admitting) Constitutional The patient is awake, alert and oriented 3, well developed and well nourished, normocephalic and atraumatic, lying in bed and in no acute distress. HEENT--PERRL, EOMI, mucous membranes and oropharynx mildly dry Neck--supple. No JVD. No bruits. Thyroid normal, trachea midline, no adenopathy. Heart--normal S1 and S2. No murmurs, rubs or gallops. Lungs--clear bilaterally, no respiratory distress, no accessory muscle use. Abdomen--normal bowel sounds and soft. Extremities--left lower extremity in bandage Dermatologic--normal skin turgor, normal color, no abnormal lymph nodes, no rash. Neurologic--cranial nerves II through XII grossly intact. Rheumatologic--normal range of motion. Psychiatric--normal affect. Discharge Data Consultations 05/23/25 15:57 ED Decision to Admit Stat 05/23/25 20:42 ED Decision to Admit Stat 05/24/25 14:54 Consult Orthopedic Surgery Routine Hospital Course (1) Tibial plateau fracture, left: (2) Ligament tear: (3) Muscle strain of left gluteal region: (4) Anticoagulated on Eliquis: Plan The patient is a 69-year-old male with a past medical history including paroxysmal atrial fibrillation, paroxysmal atrial flutter, inguinal hernia, vitamin D deficiency, carotid artery occlusion, mild persistent asthma, chronic anticoagulation on Eliquis, CESAR, BPH with LUTS, gout, diverticulosis, and history of colitis. The patient had a recent trauma on May 13, when he fell, he was seen at [facility] as an outpatient, and had x-rays performed of the left knee, and then subsequently a CT scan of the left knee which showed a tibial plateau fracture. He underwent orthopedic surgery by Dr. Ramires at [facility] on May 19. The patient reports that he also at the time of the fall had developed some left sacroiliac and left hip area pain, which has become more prevalent over the past few days. He and his daughter report that the Vicodin that he has been taking for the pain is not working adequately. He called the orthopedic surgical group [facility], and was advised to report to the nearest hospital emergency department. He presented to [facility] emergency department due to concerns regarding worsening left lower extremity pain, #Acute Left Hip Pain #Partial tear of the capsulo-labral complex #Partial tear of the iliofemoral ligament. - Continue gabapentin 300mg TID - no surgical intervention indicated per orthopedics, nonweightbearing with the left side secondary to his left knee procedure. -Consult to physical therapy for range of motion and Preservation exercises. - Oxycodone extended release 10 mg twice daily to cover his baseline movement, Ultram 50 mg every 4 hours as needed, breakthrough morphine in the short-term - bowel regimen as below -discharge home with home health and PT -Outpatient follow up with Orthopedics #Paroxysmal atrial fibrillation/paroxysmal atrial flutter/hypertension- Continue apixaban, amlodipine, aspirin, metoprolol succinate rate controlled at this time #Constipation Added lactulose, PRN Senna S and suppository PRN MiraLAX powder 17 g p.o. now, and every morning Dulcolax suppository #Left 10th rib fracture Patient without symptoms, conservative measures #S/P fall/left tibial plateau fracture/multiple ligament tears and left gluteal strain- Patient underwent left tibial plateau fracture repair by Dr. Ramires at [facility] on 05/19. His left leg is to remain wrapped he reports for 2 weeks. There was some purple/blue coloration changes noted in his foot, which prompted his visit to the emergency department Normal circulation noted on imaging studies performed. In the ED, there is no abnormal coloring, and palpable pulses are noted. Due to the patient being on anticoagulation with Eliquis, which had been stopped 3 days prior to surgery, and was resumed today after surgery, the patient underwent multiple imaging studies in the ED this evening. CT scan of chest/abdomen/pelvis noted an acute nondisplaced left 10th rib fracture. CT angiography left lower extremity shows satisfactory alignment of the acute proximal tibial plateau fracture status post ORIF. Unchanged alignment of the acute proximal fibular fracture. Complex joint effusion/hemarthrosis with lateral subcutaneous postoperative fluid collection deep to the skin una. CTA component study was within normal limits. CT scan of lumbar spine was unremarkable for acute findings, but did note chondrocalcinosis of the L4-L5 disc space, and degeneration/partial bony fusion of the left SI joint. CT scan of cervical spine with no acute fractures. CT scan of head showed no calvarial fractures and no acute intracranial findings. MRI of hip was significant for a partial tear of the L-labral complex at the 12 o'clock position of the left hip. Partial tear of the iliofemoral ligament. Bilateral hip joint effusion. Bilateral degenerative hip joint disease due to primary osteoarthritis. Grade 1 myogenic strain at the left gluteus rodrigo and rectus femoris muscles. Healed fracture of the right superior pubic ramus. Posttraumatic contusion on the lateral aspect of the left thigh with associated subcutaneous edema. The findings of the MRI explained to the patient's primary complaint which is that of left sacroiliac and left hip pain. Conservative therapy, PT/OT, should be of benefit Orthopedic follow-up per notes, appreciate recommendations. #Hyperlipidemia- Continue rosuvastatin #Ulcerative colitis- Continue sulfasalazine #GERD- Continue pantoprazole #BPH with LUTS/bladder spasm- Continue vibegron #OTC supplements- Patient will resume upon discharge Disposition: d/c home with home health Coding Level of Care Code 39203 INP/OBS DISCH >30 MIN Diagnoses Tibial plateau fracture, left S82.142A Ligament tear T14.8XXA Muscle strain of left gluteal region S76.012A Anticoagulated on Eliquis Z79.01 Time Spent (min) 35
== END 2025-05-27 10:31 | disposition home health service (06) | DRG 537 ==
LOC: ED 09:51 → SUATTDRO 21:03 → 2W 21:03